=== PATIENT | female | born 1945 | race Caucasian/White ===

== ENCOUNTER 2018-06-09 17:12 | Emergency (ER) | payer MEDICARE, OTHER, SELFPAY ==
[2018-06-09 17:29] VITALS: BP 97/67; PULSE 94; RESP 17; O2SAT 98
--- NOTE | 2018-06-09 21:08 | ED_ITS ---
HPI - Nausea/Vomiting/Diarrhea General Chief complaint: Nausea/Vomiting/Diarrhea Stated complaint: CDIF, not getting better Time Seen by Provider: 06/09/18 20:53 Source: patient, family and old records reviewed Mode of arrival: wheelchair Limitations: no limitations History of Present Illness HPI Narrative: Patient is a 72-year-old female with known C diff presenting from her PCP office is for dehydration. She was treated with multiple antibiotics for knee infection, dental infection over the past few months. His she was diagnosed with C diff a few weeks ago placed on Flagyl for 10 days symptoms improved but immediately got worse when she stopped taking them. She was then started on vancomycin he has been on vancomycin for last 5 days she states that she her symptoms and stools have not improved at all. She continues to have a liquid water pre as the bowel like movements. She says she is not actually having any stool. She was supposedly hypotensive and tachycardic is in her PCP office. Today he has been states that she was extremely weak. She overall does not feel better. Vitals in the ED currently look much improved from what is reported at PCP office Blood pressure according to records 83/60 with heart rate of 106 MD complaint: diarrhea Description of Vomiting: watery Review of Systems Review of Systems GENERAL: Denies chills, fatigue, malaise, fever, sweats, travel HEENT: Denies sinus pain, ear pain, sore throat, difficulty swallowing, neck pain RESPIRATORY: Denies dyspnea, cough, wheezing, hemoptysis, sputum. CARDIOVASCULAR: Denies chest pain, palpitations, orthopnea, edema GASTROINTESTINAL: See HPI : Denies dysuria, frequency, incontinence, hematuria, urinary retention, flank pain. MUSCULOSKELETAL: Denies weakness, joint pain, or bony pain SKIN: No rash, no erythema, no pruritus NEUROLOGIC: Denies weakness, dizziness, headache, numbness, change in speech, confusion PSYCHIATRIC: No concerning psychosocial issues. 12 point review of systems is negative except for those stated above and HPI [facility] Medical History C. difficile colitis (Acute) Parkinsons (Acute) Social History marital status: Smoking Status: Never smoker Social History marital status: Smoking Status: Never smoker Exam Initial Vital Signs Initial Vital Signs: Vital Signs Pulse Rate 94 H 06/09/18 17:29 Respiratory Rate 17 06/09/18 17:29 Blood Pressure 97/67 06/09/18 17:29 Pulse Oximetry 98 06/09/18 17:29 GENERAL: Alert elderly female no acute distress HEENT: Head atraumatic,EOMI, pupils reactive CARDIOVASCULAR: Regular rate and rhythm without murmurs, rubs or gallops. RESPIRATORY: Breath sounds equal bilaterally, no wheezes rales or rhonchi. ABDOMEN: Soft, nontender. Normoactive bowel sounds all 4 quadrants. No guarding or rebound. EXTREMITIES: Normal range of motion, no clubbing or edema. Neurovascularly intact NEUROLOGICAL: Alert and oriented x4.Normal gait and speech. Cranial nerves II through XII grossly intact. SKIN: Warm, dry, no laceration, no petechiae, no rashes or lesions. Course Orders Ordered: ED Orders 06/09/18 21:15 Complete Blood Count AUTO DIFF Stat Comprehensive Metabolic Panel Stat Lipase Stat Procalcitonin Stat 06/09/18 21:55 Blood Culture Stat Lactate (Lactic Acid) Stat Discontinued Medications Sodium Chloride (Normal Saline 0.9%) 1,000 mls @ 1,000 mls/hr IV CONT BARNEY Last Infusion: 06/09/18 23:27 Dose: 0 mls/hr Admin: 06/09/18 21:24 Dose: 1,000 mls/hr Vital Signs - 8 hr 06/09/18 21:20 06/09/18 22:39 06/09/18 23:25 Temperature 98 F Pulse Rate 73 77 76 Respiratory Rate 16 18 20 Blood Pressure 111/66 Blood Pressure [Left Arm] 134/78 162/78 H Pulse Oximetry 97 98 100 MDM - Nausea/Vomiting/Diarrhea Lab Data Attestation: I reviewed the patient's lab results. Result diagrams: 06/09/18 21:15 06/09/18 21:15 Lab Results 06/09/18 06/09/18 06/09/18 Range/Units 21:15 21:15 21:15 WBC 7.5 (4.5-11.0) X10^3/uL RBC 4.65 (4.0-5.2) X10^6/uL Hgb 14.5 (12.0-16.0) g/dL Hct 42.8 (36-46) % MCV 92.2 (80-100) fL MCH 31.1 (26-34) PG MCHC 33.7 (30-36) % RDW 13.5 (11.6-14.8) % Plt Count 206 (150-400) X10^3/uL Neut % (Auto) 51.5 (50-75) % Lymph % (Auto) 37.1 (25-40) % [place] % (Auto) 8.2 (3-14) % Eos % (Auto) 2.2 (2-4) % Baso % (Auto) 1.0 (0-2) % Neut # (Auto) 3800 (0888-3981) /uL Lymph # (Auto) 2800 (1156-2014) /uL [place] # (Auto) 600 (0-900) /uL Eos # (Auto) 200 (0-450) /uL Baso # (Auto) 100 (0-100) /uL PT Cancelled INR Cancelled APTT Cancelled Sodium 138 (137-145) mmol/L Potassium 4.2 (3.4-5.1) mmol/L Chloride 100 (98-107) mmol/L Carbon Dioxide 29 (22-32) mmol/L BUN 25 H (7-17) mg/dL Creatinine 0.90 (0.52-1.04) mg/dL Estimated GFR > 60.0 (>60) mL/min BUN/Creatinine Ratio 27.8 H (6-22) Glucose 69 L (80-110) mg/dL Lactate (0.7-2.1) mmol/L Calcium 9.7 (8.4-10.2) mg/dL Total Bilirubin 0.8 (0.2-1.3) mg/dL AST 43 H (14-36) IU/L ALT 17 (9-52) IU/L Alkaline Phosphatase 118 (38-126) U/L Total Protein 8.4 H (6.3-8.2) g/dL Albumin 4.6 (3.5-5.0) g/dL Globulin 3.8 (1.7-4.1) g/dL Albumin/Globulin Ratio 1.2 (1.0-2.8) Lipase 65 (23-300) U/L Procalcitonin (<0.5) ng/mL 06/09/18 06/09/18 Range/Units 21:15 21:55 WBC (4.5-11.0) X10^3/uL RBC (4.0-5.2) X10^6/uL Hgb (12.0-16.0) g/dL Hct (36-46) % MCV (80-100) fL MCH (26-34) PG MCHC (30-36) % RDW (11.6-14.8) % Plt Count (150-400) X10^3/uL Neut % (Auto) (50-75) % Lymph % (Auto) (25-40) % [place] % (Auto) (3-14) % Eos % (Auto) (2-4) % Baso % (Auto) (0-2) % Neut # (Auto) (7388-4393) /uL Lymph # (Auto) (3106-7792) /uL [place] # (Auto) (0-900) /uL Eos # (Auto) (0-450) /uL Baso # (Auto) (0-100) /uL PT INR APTT Sodium (137-145) mmol/L Potassium (3.4-5.1) mmol/L Chloride (98-107) mmol/L Carbon Dioxide (22-32) mmol/L BUN (7-17) mg/dL Creatinine (0.52-1.04) mg/dL Estimated GFR (>60) mL/min BUN/Creatinine Ratio (6-22) Glucose (80-110) mg/dL Lactate 1.6 (0.7-2.1) mmol/L Calcium (8.4-10.2) mg/dL Total Bilirubin (0.2-1.3) mg/dL AST (14-36) IU/L ALT (9-52) IU/L Alkaline Phosphatase (38-126) U/L Total Protein (6.3-8.2) g/dL Albumin (3.5-5.0) g/dL Globulin (1.7-4.1) g/dL Albumin/Globulin Ratio (1.0-2.8) Lipase (23-300) U/L Procalcitonin < 0.05 (<0.5) ng/mL MDM Narrative Medical decision making narrative: Patient's blood pressure was initially slightly low however improved his with IV fluids. She is tolerating oral fluids without difficulty. She was ambulating to the restroom without any problem. She likely needs longer treatment on antibiotics for her C diff. At this time she does not appear septic or significantly dehydrated and can be managed as an outpatient. Patient and agreed with this plan. Discharge Plan Departure Patient Disposition: Home Clinical Impression: Clostridium difficile infection Discharge Date/Time: 06/09/18 23:27 Interventions: ED Discharge Assessment Last Done: 06/09/18 23:25 Instructions: Antibiotic-associated Colitis -- C difficile Activity Restrictions/Additional Instructions: *You have been diagnosed with Clostridium difficile *What to do: Increase fluid intake something like Gatorade, with sugar and electrolytes. *Continue to take medications as directed Continue vancomycin in till gone as prescribed *Follow up with your primary care provider in 2-3 days *Return to ER if you should have weakness, lightheadedness, dizziness is, decreased oral intake or any new, worsening or concerning symptoms Referrals: Daly Sears MD [Primary Care Provider] -
[2018-06-09 21:20] VITALS: BP 134/78; PULSE 73; RESP 16; O2SAT 97
[2018-06-09 21:23] LABS: Add Manual Diff / Slide Review NO; Basophils Absolute Auto 100 /uL (0-100); Eosinophils Absolute Auto 200 /uL (0-450); Eosinophils Percent Auto 2.2 % (2-4); Hematocrit 42.8 % (36-46); Hemoglobin 14.5 g/dL (12.0-16.0); Lymphocytes Absolute Auto 2800 /uL (1100-4500); Lymphocytes Percent Auto 37.1 % (25-40); Mean Corpuscular HGB Conc 33.7 % (30-36); Mean Corpuscular Hemoglobin 31.1 PG (26-34); Mean Corpuscular Volume 92.2 fL (80-100); Monocytes Absolute Auto 600 /uL (0-900); Monocytes Percent Auto 8.2 % (3-14); Neutrophils Absolute Auto 3800 /uL (1500-7000); Neutrophils Percent Auto 51.5 % (50-75); Platelet Count 206 X10^3/uL (150-400); Red Blood Cell Count 4.65 X10^6/uL (4.0-5.2); Red Cell Distribution Width 13.5 % (11.6-14.8); White Blood Cell Count 7.5 X10^3/uL (4.5-11.0)
[2018-06-09] MEDS: SODIUM CHLORIDE 0.9% 1,000 ML 1000 ML IV (21:24)
[2018-06-09 21:33] LABS: Alanine Aminotransferase 17 IU/L (9-52); Albumin 4.6 g/dL (3.5-5.0); Albumin Globulin Ratio 1.2 (1.0-2.8); Alkaline Phosphatase 118 U/L (38-126); Aspartate Aminotransferase 43 IU/L (14-36); BUN Creatinine Ratio 27.8 (6-22); Bilirubin Total 0.8 mg/dL (0.2-1.3); Blood Urea Nitrogen 25 mg/dL (7-17); Calcium 9.7 mg/dL (8.4-10.2); Carbon Dioxide 29 mmol/L (22-32); Chloride 100 mmol/L (98-107); Estimated Glomerular Filt Rate > 60.0 mL/min (>60); Globulin 3.8 g/dL (1.7-4.1); Glucose 69 mg/dL (80-110); HEMOLYSIS 46 (0-50); Lipase 65 U/L (23-300); Potassium 4.2 mmol/L (3.4-5.1); Sodium 138 mmol/L (137-145); Total Protein 8.4 g/dL (6.3-8.2)
[2018-06-09 22:02] LABS: Procalcitonin < 0.05 ng/mL (<0.5)
[2018-06-09 22:21] LABS: Lactate (Lactic Acid) 1.6 mmol/L (0.7-2.1)
[2018-06-09 22:39] VITALS: BP 162/78; PULSE 77; RESP 18; O2SAT 98
[2018-06-09 23:25] VITALS: BP 111/66; PULSE 76; RESP 20; TEMP 36.6; O2SAT 100
== END 2018-06-09 23:27 | disposition home or self-care (01) ==
PROVIDERS: Emergency Provider Emergency Medicine; PCP Internal Medicine
DX: A49.8 Other bacterial infections of unspecified site (principal)
CPT/HCPCS: 36415; 36591; 80053; 83605; 83690; 84145; 85025; 87040; 96360; 96361; 99283; 99284

== ENCOUNTER 2018-06-22 17:09 | Inpatient (IN) | payer MEDICARE, OTHER, SELFPAY ==
[2018-06-22 17:37] VITALS: BP 149/79; PULSE 88; RESP 17; TEMP 37.7; O2SAT 98; BMI 36.9
[2018-06-22 19:00] VITALS: BP 129/89; PULSE 92; RESP 16; TEMP 38; O2SAT 99
[2018-06-22] MEDS: ACETAMINOPHEN 325 MG TABLET 650 MG PO (19:18)
[2018-06-22 19:23] LABS: Add Manual Diff / Slide Review NO; Basophils Absolute Auto 0 /uL (0-100); Basophils Percent Auto 0.4 % (0-2); Eosinophils Absolute Auto 0 /uL (0-450); Eosinophils Percent Auto 0.3 % (2-4); Hematocrit 38.9 % (36-46); Hemoglobin 13.2 g/dL (12.0-16.0); Lymphocytes Absolute Auto 700 /uL (1100-4500); Lymphocytes Percent Auto 8.6 % (25-40); Mean Corpuscular HGB Conc 33.9 % (30-36); Mean Corpuscular Hemoglobin 31.5 PG (26-34); Mean Corpuscular Volume 92.7 fL (80-100); Monocytes Absolute Auto 600 /uL (0-900); Monocytes Percent Auto 6.9 % (3-14); Neutrophils Absolute Auto 7200 /uL (1500-7000); Neutrophils Percent Auto 83.8 % (50-75); Platelet Count 181 X10^3/uL (150-400); Red Cell Distribution Width 13.6 % (11.6-14.8); White Blood Cell Count 8.6 X10^3/uL (4.5-11.0)
--- NOTE | 2018-06-22 19:23 | PC.NURSE ---
reported pt temp, rec'd orders, noted.
[2018-06-22 19:33] LABS: Alanine Aminotransferase 19 IU/L (9-52); Albumin 3.8 g/dL (3.5-5.0); Albumin Globulin Ratio 1.2 (1.0-2.8); Alkaline Phosphatase 114 U/L (38-126); Aspartate Aminotransferase 39 IU/L (14-36); BUN Creatinine Ratio 18.9 (6-22); Bilirubin Total 0.8 mg/dL (0.2-1.3); Blood Urea Nitrogen 17 mg/dL (7-17); Calcium 9.1 mg/dL (8.4-10.2); Carbon Dioxide 29 mmol/L (22-32); Chloride 98 mmol/L (98-107); Estimated Glomerular Filt Rate > 60.0 mL/min (>60); Globulin 3.2 g/dL (1.7-4.1); Glucose 86 mg/dL (80-110); HEMOLYSIS < 15 (0-50); Potassium 3.9 mmol/L (3.4-5.1); Sodium 136 mmol/L (137-145)
[2018-06-22] MEDS: SODIUM CHLORIDE 0.9% 1,000 ML 1000 ML IV (19:41)
[2018-06-22 19:43] LABS: Influenza A and B by PCR Rapid Negative (Negative)
[2018-06-22 21:21] VITALS: BP 109/74; PULSE 88; RESP 18; TEMP 37.3; O2SAT 94
[2018-06-22 21:26] VITALS: TEMP 37.3
--- NOTE | 2018-06-22 21:27 | PC.NURSE ---
pt took own 2000 medications.
[2018-06-22 21:56] VITALS: BMI 36.9
[2018-06-22 22:25] VITALS: BP 137/80; PULSE 94; RESP 18; TEMP 36.8; O2SAT 96
[2018-06-22 23:51] VITALS: BP 127/63; PULSE 82; RESP 16; TEMP 36.8; O2SAT 93
[2018-06-23] VITALS (10 sets, daily range): BP systolic 116–145; BP diastolic 56–91; PULSE 71–90; RESP 16–20; TEMP 36.2–37.1; O2SAT 92–97; BMI 37.4
--- NOTE | 2018-06-23 | DI.RAD.S_ITS ---
PROCEDURE: XR ABDOMEN MIN 2V INDICATIONS: r/o ileus TECHNIQUE: 2 views of the abdomen were acquired. COMPARISON: None. FINDINGS: Surgical changes and devices: There is suggestion of lap band in left upper quadrant abdomen. Post-fusion changes in lower lumbar spine are also noted. Bowel: No pneumoperitoneum. The bowel gas pattern is normal. Fecal stasis in the colon is seen. Soft tissues: No masses; visualized solid organ contours appear normal in size. No suspicious abdominal calcifications. Bones: No suspicious bony abnormalities. IMPRESSION: Constipation. No gross free air. Dictated by: Wang Mendoza M.D. on 06/23/2018 at 18:19 Approved by: Wang Mendoza M.D. on 06/23/2018 at 18:20
--- NOTE | 2018-06-23 00:35 | ED_ITS ---
HPI - Nausea/Vomiting/Diarrhea General Chief complaint: Nausea/Vomiting/Diarrhea Stated complaint: C-diff Time Seen by Provider: 06/22/18 18:25 Source: patient and family Mode of arrival: ambulatory Limitations: no limitations History of Present Illness HPI Narrative: 72-year-old female, nonsmoker with history recent C diff and Parkinson's presents with her at the request of her primary care provider. The patient has had multiple syncopal episodes over the past few days and continues to be dizzy, weak and lightheaded. She has a very poor appetite and can drink some water but has had no solid foods. She got C diff in the aftermath of multiple courses of antibiotics after a surgical site infection of an orthopedic knee surgery and then again in March when she was treated with clindamycin for a dental infection. She has now had course of Flagyl and recently completed oral vancomycin. She was seen by her PCP a few weeks ago and had low BP in the office and was sent here for evaluation. She felt better after fluids and went home. She presented to his office today and had BP in the 70s, was given an IV and sent here for evaluation. complaint: diarrhea Onset (ago): week(s) Description of Diarrhea: watery Radiation: diffuse Severity: mild Quality: cramping Pain Consistency: intermittent Relieving factors: none Exacerbating factors: none Related Data Home Medications Medication Instructions Recorded Confirmed alprazolam [Xanax] 1 mg PO BEDTIME 06/22/18 06/22/18 amantadine HCl 100 mg PO BID 06/22/18 06/22/18 carbidopa-levodopa 1 tab PO 0000 06/22/18 06/22/18 carbidopa-levodopa 1 tab PO QID 06/22/18 06/22/18 docusate calcium [Stool Softener] 240 mg PO BID 06/22/18 06/22/18 duloxetine 30 mg PO Q8H 06/22/18 06/22/18 gabapentin 200 mg PO Q4H 06/22/18 06/22/18 levothyroxine [Synthroid] 100 mcg PO DAILY 06/22/18 06/22/18 Allergies Allergy/AdvReac Type Severity Reaction Status Date / Time codeine Allergy Verified 06/22/18 17:54 iodine Allergy Verified 06/22/18 17:54 Penicillins Allergy Verified 06/22/18 17:54 Sulfa (Sulfonamide Allergy Verified 06/22/18 17:54 Antibiotics) Review of Systems Constitutional Denies chills, Denies fever(s), Denies lethargy, Reports malaise, Reports poor appetite and Reports weakness Eyes Denies change in vision, Denies eye discharge, Denies irritation and Denies loss of vision ENT Ears, Nose, Mouth, and Throat: Denies change in voice, Denies neck pain and Denies sore throat Cardiovascular Denies chest pain, Denies irregular heart rhythm, Denies lightheadedness, Denies palpitations, Denies dyspnea, Denies dyspnea on exertion and Denies orthopnea Respiratory Denies cough, Denies dyspnea, Denies dyspnea on exertion and Denies wheezing Gastrointestinal Gastrointestinal: Denies abdominal pain, Denies change in bowel habits, Reports diarrhea, Denies nausea and Denies vomiting Genitourinary Denies hematuria, Denies flank pain, Denies urinary incontinence and Denies urinary urgency Musculoskeletal Denies neck pain Integumentary/Breasts Denies pruritus, Denies erythema, Denies rash and Denies wounds Neurologic Denies confusion, Denies loss of vision and Reports weakness Psychiatric Denies anxiety, Denies confusion, Denies depression, Denies homicidal ideation and Denies suicidal ideation Endocrine Denies palpitations Hematologic/Lymphatic Denies easy bruising Allergic/Immunologic Denies wheezing [facility] Medical History C. difficile colitis (Acute) Parkinsons (Acute) Social History marital status: household members: spouse Smoking Status: Never smoker Social History marital status: household members: spouse Smoking Status: Never smoker Exam Narrative Exam Narrative: GENERAL: 72-year-old female in obvious distress, dry mucous membranes, weak and frail in appearance HEAD: Atraumatic. Normocephalic. No temporal or scalp tenderness. EYES: Pupils equal round and reactive. Extraocular motions intact. No scleral icterus. No injection or drainage. ENT: Dry mucous membranes Nose without bleeding, purulent drainage or septal hematoma. Throat without erythema, tonsillar hypertrophy or exudate. Uvula midline. Airway patent. NECK: Trachea midline. No JVD or lymphadenopathy. Supple, nontender, no meningeal signs. CARDIOVASCULAR: Regular rate and rhythm without murmurs, gallops, or rubs. RESPIRATORY: Clear to auscultation. Breath sounds equal bilaterally. No wheezes, rales, or rhonchi. GASTROINTESTINAL: Abdomen soft, non-tender, nondistended. No hepato-spl enomegaly, or palpable masses. No guarding. EXTREMITIES: No clubbing, cyanosis, or edema. No joint tenderness, effusion, or edema noted. BACK: Nontender without deformity or crepitance. No flank tenderness. NEURO: AOx3. SKIN: Poor skin turgor No rash or erythema. Initial Vital Signs Initial Vital Signs: Vital Signs Temperature 99.9 F H 06/22/18 17:37 Pulse Rate 88 06/22/18 17:37 Respiratory Rate 17 06/22/18 17:37 Blood Pressure 149/79 H 06/22/18 17:37 Pulse Oximetry 98 06/22/18 17:37 Course Orders Ordered: ED Orders 06/22/18 19:04 Complete Blood Count AUTO DIFF Stat Comprehensive Metabolic Panel Stat 06/22/18 19:09 Blood Culture Stat 06/22/18 19:15 FLU A and B [Influenza A and B by PCR Rapid] Stat 06/23/18 Basic Metabolic Panel Routine Complete Blood Count AUTO DIFF Routine Magnesium Routine 06/23/18 00:08 Consult to Dietitian, Adult Routine 06/23/18 00:09 Consult to Discharge Planning Routine Acetaminophen (Tylenol) 650 mg PO Q6HR PRN PRN Reason: As Needed for Fever/Mild Pain Amantadine HCl (Symmetrel) 100 mg PO BID BARNEY Carbidopa/Levodopa (Sinemet Er 50-200 Tab) 1 each PO 0000 BARNEY Duloxetine HCl (Cymbalta) 30 mg PO Q8H BARNEY Enoxaparin Sodium (Lovenox) 40 mg SUBCUT DAILY BARNEY Gabapentin (Neurontin) 200 mg PO Q4H BARNEY Sodium Chloride (Normal Saline 0.9%) 1,000 mls @ 1,000 mls/hr IV BOLUS PRN PRN Reason: Fluid replacement Last Infusion: 06/22/18 21:04 Dose: 0 mls/hr Admin: 06/22/18 19:41 Dose: 1,000 mls/hr Sodium Chloride (Normal Saline 0.9%) 1,000 mls @ 100 mls/hr IV CONT BARNEY Sodium Chloride (Normal Saline 0.9%) 1,000 mls @ 125 mls/hr IV CONT BARNEY Levothyroxine Sodium (Synthroid) 100 mcg PO QACBREAK BARNEY Non-Formulary Medication (Carbidopa-Levodopa) 1 tab PO QID BARNEY Ondansetron HCl (Zofran) 4 mg IV Q8HR PRN PRN Reason: Nausea And Vomiting Vancomycin HCl (Vancomycin) 125 mg PO QID BARNEY Discontinued Medications Acetaminophen (Tylenol) 650 mg PO NOW ONE Stop: 06/22/18 19:14 Last Admin: 06/22/18 19:18 Dose: 650 mg Ondansetron HCl (Zofran) 4 mg IV NOW ONE Stop: 06/22/18 18:27 Last Admin: 06/22/18 19:41 Dose: Not Given Vital Signs - 8 hr 06/22/18 17:37 06/22/18 19:00 06/22/18 21:21 Temperature 99.9 F H 100.4 F H 99.1 F Pulse Rate 88 92 H 88 Respiratory Rate 17 16 18 Blood Pressure 149/79 H Blood Pressure [Left Arm] 129/89 109/74 Pulse Oximetry 98 99 94 06/22/18 21:26 06/22/18 22:25 06/22/18 23:51 Temperature 99.1 F 98.3 F 98.3 F Pulse Rate 94 H 82 Respiratory Rate 18 16 Blood Pressure 137/80 127/63 Blood Pressure [Left Arm] Pulse Oximetry 96 93 06/23/18 00:02 Temperature 98.3 F Pulse Rate 82 Respiratory Rate 16 Blood Pressure 127/63 Blood Pressure [Left Arm] Pulse Oximetry 93 MDM - Nausea/Vomiting/Diarrhea Medical Records Attestation: I reviewed the patient's medical records. Lab Data Result diagrams: 06/22/18 19:04 06/22/18 19:04 Lab Results 06/22/18 06/22/18 06/22/18 Range/Units 19:04 19:04 19:15 WBC 8.6 (4.5-11.0) X10^3/uL RBC 4.20 (4.0-5.2) X10^6/uL Hgb 13.2 (12.0-16.0) g/dL Hct 38.9 (36-46) % MCV 92.7 (80-100) fL MCH 31.5 (26-34) PG MCHC 33.9 (30-36) % RDW 13.6 (11.6-14.8) % Plt Count 181 (150-400) X10^3/uL Neut % (Auto) 83.8 H (50-75) % Lymph % (Auto) 8.6 L (25-40) % [place] % (Auto) 6.9 (3-14) % Eos % (Auto) 0.3 L (2-4) % Baso % (Auto) 0.4 (0-2) % Neut # (Auto) 7200 H (4218-2946) /uL Lymph # (Auto) 700 L (2008-2620) /uL [place] # (Auto) 600 (0-900) /uL Eos # (Auto) 0 (0-450) /uL Baso # (Auto) 0 (0-100) /uL Sodium 136 L (137-145) mmol/L Potassium 3.9 (3.4-5.1) mmol/L Chloride 98 (98-107) mmol/L Carbon Dioxide 29 (22-32) mmol/L BUN 17 (7-17) mg/dL Creatinine 0.90 (0.52-1.04) mg/dL Estimated GFR > 60.0 (>60) mL/min BUN/Creatinine Ratio 18.9 (6-22) Glucose 86 (80-110) mg/dL Calcium 9.1 (8.4-10.2) mg/dL Total Bilirubin 0.8 (0.2-1.3) mg/dL AST 39 H (14-36) IU/L ALT 19 (9-52) IU/L Alkaline Phosphatase 114 (38-126) U/L Total Protein 7.0 (6.3-8.2) g/dL Albumin 3.8 (3.5-5.0) g/dL Globulin 3.2 (1.7-4.1) g/dL Albumin/Globulin Ratio 1.2 (1.0-2.8) Influenza A & B (PCR) Negative (Negative) Urine Dip Bedside Urine Glucose Negative Bedside Urine Bilirubin - Negative Bedside Urine Ketone ++ 40 Urine Specific [place] 1.030 Bedside Urine Occult Blood ++ Bedside Urine pH 6.0 Bedside Urine Protein - Negative Bedside Urine Urobilinogen - Negative Bedside Urine Nitrite - Negative Bedside Urine Leukocytes - Negative Esterase MDM Narrative Medical decision making narrative: 72-year-old female with history of Par kinson's has had multiple episodes of syncope and stands a strong risk of significant injury when coupling dehydration, weakness and her baseline gait disturbance. She has known C diff colitis and has become profoundly dehydrated and despite 3 L of normal saline has not produced urine, continues to have dry mucous membranes, poor skin turgor. Though her labs are not terribly exciting she will require hospitalization for stabilization and further evaluation of her condition Discharge Plan Departure Patient Disposition: Admitted as Observation Clinical Impression: Clostridium difficile infection, Dehydration Discharge Date/Time: 06/22/18 22:06 Interventions: ED Discharge Assessment Last Done: 06/22/18 22:06 Admit Date/Time: 06/22/18 21:23 Admit Provider: Carlos Sinha
[2018-06-23] MEDS: VANCOMYCIN 125 MG CAPSULE PO ×4 (01:25→16:27)
[2018-06-23] MEDS: SODIUM CHLORIDE 0.9% 1,000 ML 1000 ML IV (01:25)
--- NOTE | 2018-06-23 01:38 | PC.NURSE ---
Addendum entered by Yi Andres R.N. 06/23/18 06:12: Pt reports dizziness when up to sink after using bathroom. See [facility]ER note for details. Once back in bed. Pt reports s/s have resolved. Original Note: Pt arrived to room 224 via Stretcher prior this check writer's shift. No IV access. IV access obtained. Per Hospitalist okay for pt to take her own HS home meds as they are not stocked in night pharmacy. IVF bolus infusing per orders. Oriented to room and call system. Pt verbalized she will call for needs.
--- NOTE | 2018-06-23 02:21 | PM.HP.1 ---
History of Present Illness Date Patient Seen: 06/22/18 Time Patient Seen: 23:00 Chief complaint: C-diff Narrative: This is a 72-year-old female patient with a history of Parkinson's, hypothyroidism, vertigo presents to the ER today with complaints syncopal episodes low blood pressure dizziness. The patient had a previous episode C difficile colitis after exposure to multiple antibiotics that began with total knee surgery in December followed by another surgery January for infected knee and then on March 31 the patient was started on clindamycin for dental infection by the oral surgeon developing C difficile the next day. This is treated with Flagyl and oral vancomycin for 2 weeks. She has had recurrent symptoms with watery mucoid stools and loss of appetite and 2 syncopal episodes in the last 2 days. Patient describes being dizzy and lightheaded upon standing. She describes having abdominal pain that is dull at times sharp but others and rates his worst than menstrual cramps. The patient initially treated in walk-in clinic with 2 L of lactated Ringer's. She received another L of fluid in the emergency room. The patient disorder reports progressive weakness to the extent that over the last 3 weeks she has not been able to participate with physical therapy for her knee rehabilitation. The patient does state that she can walk around the house or walk for approximately 10 minutes without having to rest. She reports no ongoing complaints of fevers or chills, headaches or visual changes. She has a nasal congestion or sore throat. She reports no chest pain but does have dyspnea on exertion without cough. The patient does have continuing left knee pain with a well-healed surgical scar without evidence of infection or inflammation. In the ER the patient has a normal white count at 8.6 with increased neutrophils is negative for flu and chemistries and renal function are within normal range. Patient History Medical History (Updated 06/23/18 @ 03:28 by BERT Marc) History of dental abscess (Acute) Hypothyroidism (Acute) Infection of total left knee replacement (Acute) C. difficile colitis (Acute) Parkinsons (Acute) Surgical History History of total left knee replacement (Acute) Social History marital status: household members: spouse Smoking Status: Never smoker Family & Social History Social History: household members spouse Prior Living Arrangements House Safety & Behavioral: Feels Safe in Current Yes Environment Been Physically Hurt or No Threatened By a Person Suicidal Ideation Description None Suicide Plan Description No Plan Tobacco & Substance use: Smoking Status Never smoker alcohol intake frequency other Substance Use Type does not use Comment: The patient lives in a single family home with her to whom she has been for 51 years and her son for whom she is safety leader who has a history of traumatic brain injury. The patient's father is at 69 following a stroke in her mother at 72 also with a stroke. Her brother suddenly related to ruptured aortic aneurysm. She has a sister who has rectal colon cancer and daughter who has lupus. Smoking: The patient has never smoked Alcohol: The patient does not drink alcohol Substance use: Patient denies use of recreational pharmaceuticals, herbal or cannabis products. Advanced directives: Patient wishes to be a DO NOT RESUSCITATE related to history of advanced Parkinson's disease. she designates her daughter Valerie Tamez to be her surrogate decision maker. Meds Home Medications Medication Instructions Recorded Confirmed Type alprazolam [Xanax] 1 mg PO BEDTIME 06/22/18 06/22/18 History amantadine HCl 100 mg PO BID 06/22/18 06/22/18 History carbidopa-levodopa 1 tab PO 0000 06/22/18 06/22/18 History carbidopa-levodopa 1 tab PO QID 06/22/18 06/22/18 History docusate calcium [Stool Softener] 240 mg PO BID 06/22/18 06/22/18 History duloxetine 30 mg PO Q8H 06/22/18 06/22/18 History gabapentin 200 mg PO Q4H 06/22/18 06/22/18 History levothyroxine [Synthroid] 100 mcg PO DAILY 06/22/18 06/22/18 History Allergies Allergy/AdvReac Type Severity Reaction Status Date / Time codeine Allergy Verified 06/22/18 17:54 iodine Allergy Verified 06/22/18 17:54 Penicillins Allergy Verified 06/22/18 17:54 Sulfa (Sulfonamide Allergy Verified 06/22/18 17:54 Antibiotics) Review of Systems Review of Systems All systems reviewed & are unremarkable except as noted in HPI and below Exam Vital Signs (past 8 hours): - 06/22/18 19:00 06/22/18 21:21 06/22/18 21:26 Temperature 100.4 F H 99.1 F 99.1 F Pulse Rate 92 H 88 Respiratory Rate 16 18 Blood Pressure Blood Pressure [Left Arm] 129/89 109/74 Pulse Oximetry 99 94 06/22/18 22:25 06/22/18 23:51 06/23/18 00:02 Temperature 98.3 F 98.3 F 98.3 F Pulse Rate 94 H 82 82 Respiratory Rate 18 16 16 Blood Pressure 137/80 127/63 127/63 Blood Pressure [Left Arm] Pulse Oximetry 96 93 93 Oxygen Delivery Method Room Air Narrative Exam Narrative: GENERAL APPEARANCE: well developed, obese female with a BMI of 36.9 who is ill-appearing. HEAD: Normocephalic, masked facies not appreciated, no scalp lesions. EYES: pupils equal, round, reactive to light and accommodation, sclera non-icteric, extraocular movement intact . EARS: normal external structures, no ear pain NOSE: sinuses non tender to percussion, no rhinorrhea ORAL CAVITY: mucosa moist without lesions or exudate, palate normal, tongue in midline. THROAT: normal, no erythema, no exudate, pharynx normal, uvula midline, no evidence of dysphagia NECK/THYROID: neck supple, no jugular venous distention, no carotid bruit, no thyromegaly, trachea midline. LYMPH NODES: no cervical or supraclavicular lymphadenopathy. SKIN: warm and dry, no suspicious lesions, no rashes, good turgor. HEART: regular rate and rhythm, S1-S2, 1/6 systolic murmur, without rubs or gallops, brisk capillary refill, trace pedal edema LUNGS: clear to auscultation bilaterally, no coarseness crackles or wheezing, no cough present CHEST: Symmetrical movement, no accessory muscle use ABDOMEN: Soft, round, no distention, generalized abdominal tenderness on palpation, no guarding or peritoneal signs, no organomegaly, no flank or suprapubic tenderness, bowel tones hyperactive BACK: Normal curvature, pain on percussion over right scapula without contusions or abrasions or muscle spasms EXTREMITIES: Well-healed surgical scar over left anterior knee, tender to palpation, pain on patellar manipulation, moves all extremities, strength is 5/5 and symmetrical, well perfused. NEUROLOGIC: AAO x4, decreased use of left arm, mild hand tremor, cranial nerves II-XII grossly intact , motor strength normal upper and lower extremities, sensory exam intact to light touch, hearing grossly normal to speech. PSYCH: alert, cognitive function intact, good eye contact, stable mood with congruent affect Objective Labs Result Diagrams: 06/22/18 19:04 06/22/18 19:04 Labs: Laboratory Results - last 24 hr 06/22/18 06/22/18 06/22/18 19:04 19:04 19:15 WBC 8.6 RBC 4.20 Hgb 13.2 Hct 38.9 MCV 92.7 MCH 31.5 MCHC 33.9 RDW 13.6 Plt Count 181 Neut % (Auto) 83.8 H Lymph % (Auto) 8.6 L [place] % (Auto) 6.9 Eos % (Auto) 0.3 L Baso % (Auto) 0.4 Neut # (Auto) 7200 H Lymph # (Auto) 700 L [place] # (Auto) 600 Eos # (Auto) 0 Baso # (Auto) 0 Sodium 136 L Potassium 3.9 Chloride 98 Carbon Dioxide 29 BUN 17 Creatinine 0.90 Estimated GFR > 60.0 BUN/Creatinine Ratio 18.9 Glucose 86 Calcium 9.1 Total Bilirubin 0.8 AST 39 H ALT 19 Alkaline Phosphatase 114 Total Protein 7.0 Albumin 3.8 Globulin 3.2 Albumin/Globulin Ratio 1.2 Influenza A & B (PCR) Negative Assessment & Plan Assessment & Plan narrative: The patient is admitted to the hospital due to severe dehydration secondary to colitis number. 1. Clostridium difficile infection, acute on chronic -onset of initial episode of C difficile was March 31, 2017 following exposure to multiple antibiotics related to knee surgery and subsequently clindamycin for dental infection -patient is symptomatic with mucoid watery stools and completed course of metronidazole and oral vancomycin for 2 weeks -patient has normal white count however has increased neutrophils, has negative flu screen, will obtain a GI PCR panel to evaluate for superimposed viral process -the patient is restarted on vancomycin 125 mg every 6 hours. 2. Severe dehydration, acute -patient seen in urgent care setting where the patient was rehydrated with 2 L of lactated Ringer's and subsequently sent to the emergency department for further treatment -patient has received another liter of IV fluids in the ER. Patient continues to report orthostasis -will continue normal saline at 125 cc/hour. 3. Parkinsonism, chronic -the patient is currently taking amantadine 100 mg twice daily and carbidopa levodopa ER 25/100 4 times daily and 50/100 at midnight -patient's symptoms appear well controlled with hand tremors but face is animated -will have physical therapy evaluate and treat for motor instability 4. Status post infected left total knee replacement, chronic -The patient has ongoing left knee pain but is not taking oral pain medication. -will have PT evaluate gait disturbance related to both muscular instability from Parkinson's versus mechanical disability related to her total knee. 5. Hypothyroidism, chronic, presume stable -will continue patient's levothyroxine 100 mcg daily The patient is admitted to the hospital related to the severity of symptoms and potential for complications. She is admitted as an inpatient with expected length of stay greater than 2 midnights.
[2018-06-23] MEDS: SODIUM CHLORIDE 0.9% 1,000 ML 125 ML IV ×3 (02:33→18:38)
--- NOTE | 2018-06-23 05:44 | PC.NURSE ---
Took patient's vitals before getting up to go to the bathroom. They were 97.7; 76 pulse; 18 resp/minute; 97% on RA; and 116/68. I got patient to the bathroom and when she was washing her hands she started to complain of feeling dizzy and light headed. Called in Yi Andres RN. Got patient safely back to bed. Took patient's blood pressure: 141/91 with a pulse of 86. Patient back in bed, yellow gown on, yellow socks. Bed alarm on. RN aware.
[2018-06-23 06:49] LABS: Campylobacter Not Detected (Not Detect)
[2018-06-23 06:50] LABS: Adenovirus F 40/41 Not Detected (Not Detect); Clostridium difficile toxin AB Detected (Not Detect); Cryptosporidium Not Detected (Not Detect); Cyclospora cayetanensis Not Detected (Not Detect); Entamoeba histolytica Not Detected (Not Detect); Enteroaggregative E.coli Not Detected (Not Detect); Enteropathogenic E.coli Not Detected (Not Detect); Enterotoxigenic E.coli It/st Not Detected (Not Detect); Giardia lamblia Not Detected (Not Detect); Plesiomonsa shigelloides Not Detected (Not Detect); Salmonella Not Detected (Not Detect); Shiga-like toxin-prod E.coli Not Detected (Not Detect); Shigella/Enteroinvasive E.coli Not Detected (Not Detect); Vibrio Not Detected (Not Detect); Vibrio cholerae Not Detected (Not Detect); Yersinia enterocolitica Not Detected (Not Detect)
[2018-06-23 06:51] LABS: Astrovirus Not Detected (Not Detect); Norovirus GI/GII Not Detected (Not Detect); Rotavirus A Not Detected (Not Detect); Sapovirus Not Detected (Not Detect)
[2018-06-23 06:53] LABS: Add Manual Diff / Slide Review NO; Basophils Absolute Auto 0 /uL (0-100); Basophils Percent Auto 0.6 % (0-2); Eosinophils Absolute Auto 200 /uL (0-450); Eosinophils Percent Auto 2.8 % (2-4); Hematocrit 34.9 % (36-46); Lymphocytes Absolute Auto 1000 /uL (1100-4500); Lymphocytes Percent Auto 17.6 % (25-40); Mean Corpuscular HGB Conc 34.3 % (30-36); Mean Corpuscular Hemoglobin 31.9 PG (26-34); Monocytes Absolute Auto 600 /uL (0-900); Monocytes Percent Auto 10.1 % (3-14); Neutrophils Absolute Auto 4000 /uL (1500-7000); Neutrophils Percent Auto 68.9 % (50-75); Platelet Count 166 X10^3/uL (150-400); Red Blood Cell Count 3.76 X10^6/uL (4.0-5.2); White Blood Cell Count 5.7 X10^3/uL (4.5-11.0)
[2018-06-23 07:11] LABS: BUN Creatinine Ratio 18.6 (6-22); Blood Urea Nitrogen 13 mg/dL (7-17); Calcium 8.7 mg/dL (8.4-10.2); Carbon Dioxide 29 mmol/L (22-32); Chloride 104 mmol/L (98-107); Estimated Glomerular Filt Rate > 60.0 mL/min (>60); Glucose 90 mg/dL (80-110); HEMOLYSIS < 15 (0-50); Potassium 3.3 mmol/L (3.4-5.1); Sodium 139 mmol/L (137-145)
[2018-06-23 07:33] LABS: Procalcitonin 0.05 ng/mL (<0.5)
[2018-06-23] MEDS: ENOXAPARIN 40 MG/0.4 ML SYRINGE SUBCUT (07:59)
[2018-06-23] MEDS: ACETAMINOPHEN 325 MG TABLET 650 MG PO ×2 (07:59→23:39)
[2018-06-23] MEDS: GABAPENTIN 100 MG CAPSULE 200 MG PO ×5 (08:00→23:52)
[2018-06-23] MEDS: DULOXETINE 30 MG CAPSULE PO (08:00)
[2018-06-23] MEDS: AMANTADINE 100 MG CAPSULE PO ×2 (08:01→16:33)
[2018-06-23] MEDS: CARBIDOPA LEVODOPA 1 EACH PO ×3 (09:30→20:37)
--- NOTE | 2018-06-23 11:05 | PT.IIE ---
Surgical History (Last Reviewed 06/23/18 @ 08:32 by Eva Ramirez, PT) History of total left knee replacement (Acute) Medical History (Last Reviewed 06/23/18 @ 08:32 by Eva Ramirez, PT) History of dental abscess (Acute) Hypothyroidism (Acute) Infection of total left knee replacement (Acute) C. difficile colitis (Acute) Parkinsons (Acute) Physical Therapy Inpatient Evaluation/Re-Eval M1 PT/OT-IP Prior Functional Status Start: 06/23/18 10:07 Freq: NEEDED Status: Active Protocol: Document 06/23/18 11:05 DLM (Rec: 06/23/18 12:24 DL [id number]) Medical Review Prior Functional Status Medical History Reviewed Yes Diet/Fluid Consistency Regular Communication WNL Mobility and Gait Independent gait with 4WW in her home, Spouse helps her up/ down the steps at the entrance , she gets help with rolling over in bed Activities of Daily Living and IADL's Spouse assists her with toileting and showers. Her Spouse does the cooking, cleaning and laundry. She has a actuarial technician who does the bigger cleaning. Prior Functional Level (Other details) Parkinsons symptoms Her out-pt Physical Therapy was stopped due to the infection in left knee then onset of C-diff. Social History Household Members spouse Living Arrangements House Number of Floors (Floors) One Floor Number of Stairs To Enter/Railing? 2, rails Home Environment High Toilet Walk in Shower Home Equipment Four Wheel Walker Raised Toilet Seat w/Armrests Shower Seat with Backrest Grab Bars Near Toilet Grab Bars In Shower Employment Status Retired Additional Social History Comment she fell twice before this admission due to weakness and dizziness (off toilet and off edge of bed) M2 PT-IP Current Condition Start: 06/23/18 10:07 Freq: NEEDED Status: Active Protocol: Document 06/23/18 11:05 DLM (Rec: 06/23/18 12:24 DL [id number]) Physical Therapy Current Condition Current Condition Evaluation Date 06/23/18 Treatment Diagnosis weakness Onset Date 06/22/18 Precautions Other Precautions C-diff M3 PT-IP Subjective Start: 06/23/18 10:07 Freq: NEEDED Status: Active Protocol: Document 06/23/18 11:05 DLM (Rec: 06/23/18 12:24 [facility] [id number]) Subjective Physical Therapy Visit Type Type Initial Evaluation Visit Start Time 10:30 Visit Stop Time 11:05 Total Visit Minutes 35 Number of PSYCHOLOGIST COUNSELING Visits 0 Physical Therapy Visit Comments Patient Comments She is frustrated with being sick so long, been struggling with C-diff since Mar Patient Goals get better Therapy Pain Assessment Pain When Pain Assessed During Mobility Pain Present Pain Present Pain Reported Location Left Hip Intensity 4 Scale Used Numeric (1 - 10) Description Aching Pain Management Techniques Modification of Treatment M4 PT-IP Mobility and Gait Start: 06/23/18 10:07 Freq: NEEDED Status: Active Protocol: Document 06/23/18 11:05 DLM (Rec: 06/23/18 12:24 [facility] [id number]) PT-Bed Mobility Assessment Supine to Sit Supine to Sit Standby Assistance Sit to Supine Sit to Supine Minimal Assistance Scooting Scooting to Edge of Bed Independent PT-Transfer Assessment Sit to and From Stand Sit to and from Stand Standby Assistance Use of Upper Extremities Equipment Transfer Assistive Device Gait Belt 4 Wheeled Walker Transfers Transfer Destination Chair Toilet Transfer Technique Stand Step Pivot Transfer Ability Level of Assist Standby Assistance Use of Upper Extremities Comments Mobility Comments new pain left hip and lateral knee since her falls at home, no bruising observed Gait Assessment Gait Gait Assistance Required: Standby Assistance Distance (Feet) 20 Assistive Devices Assistive Device Gait Belt 4 Wheeled Walker Factors Limiting Gait Function Factors Limiting Gait Function Decreased Activity Tolerance Decreased Strength Pain PT-Balance Assessment Sitting Balance and Reactions Static Sitting Balance Ability Normal Dynamic Sitting Balance Ability Normal Standing Balance and Reactions Static Standing Balance Ability Good Dynamic Standing Balance Ability Good Device Used 4WW M5 PT-IP Objective Assessments Start: 06/23/18 10:07 Freq: NEEDED Status: Active Protocol: Document 06/23/18 11:05 DLM (Rec: 06/23/18 12:24 [facility] [id number]) Orientation Orientation/Cognition Level of Alertness Alert Orientation Name Age Birthday Month Date Year Day of Week Place Situation Language Function Ability No Deficits Noted Safety Awareness Understands Safety Issues Memory Description No Deficits Noted Gross Range of Motion Upper Extremity ROM Assessment Within Functional Limits Lower Extremity ROM Assessment Within Functional Limits Strength Upper Extremity Strength Assessment Within Functional Limits Lower Extremity Strength Assessment Left Impaired Hip hip flexion 4/5 with pain Knee ext 4/5 with pain, flexion 4+/ 5 Ankle DF 5/5 Coordination Assessment Gross Coordination Gross Coordination Impaired Assessment Coordination Comments mild tremors Sensation Assessment Sensation Gross Sensation Right UE Impaired Left UE Impaired Right LE Impaired Left LE Impaired Light Touch Impaired Sensation Description Numbness Pain Comments Sensation Comments hx neuropathy in hands and feet that is managed with medications per pt Muscle Tone Muscle Tone WNL Yes M6 PT-IP Treatment Start: 06/23/18 10:07 Freq: NEEDED Status: Active Protocol: Document 06/23/18 11:05 DLM (Rec: 06/23/18 12:24 DLM [id number]) Physical Therapy Treatment Exercises Exercises Ankle Pumps Heel Slides Straight Leg Raises Seated Knee Flexion/Extension Education Education Provided Safety Equipment Issued Equipment Type and Company she has her 4WW from home in her room M7 PT-IP Assessment and Plan Start: 06/23/18 10:07 Freq: NEEDED Status: Active Protocol: Document 06/23/18 11:05 DLM (Rec: 06/23/18 12:24 DL [id number]) PT Summary Assessment and Plan Potential Rehabilitation Potential Good Status of Condition at Evaluation Evolving Summary Impairments Pain Strength Bed Mobility Activity Tolerance Assessment Summary Brit is alert and motivated to participate in physical therapy. Her activity is limited by abdominal cramping and frequent trips to toilet for BM. New left hip and knee pain reported since her falls at home before this admission. No dizziness during mobility this visit. She needs assistance to manage her IV during mobility since she uses a 4WW for all gait. She is tolerating gait in her room well with 4WW. Will continue to see her for LE strengthening and gait while hospitalized. I anticipate she will be safe to discharge home with her Spouse when she is medically stable. Goals Bed Mobility Goal Independent Gait Goal Independent Four Wheel Walker Gait Distance 150 feet Days to Meet Goals 3 Frequency of Treatment Frequency Of Treatment Once a Day Treatment Plan Physical Therapy Treatment Plan Bed Mobility Training Therapeutic Exercise Discharge Planning Recommendations To Nursing Amount of Assist Needed Standby Assistance Discharge Recommendations PT Discharge Recommendations Home with Assistance
[2018-06-23] MEDS: LEVOTHYROXINE 100 MCG TABLET PO (11:38)
[2018-06-23] MEDS: CARBIDOPA-LEVODOPA 25/100 TABLET 1 EACH PO (12:38)
--- NOTE | 2018-06-23 14:13 | PC.NURSE ---
Addendum entered by Gabriel Schultz R.N. 06/23/18 14:28: PATIENT AGAIN HAD SMALL MUCUS STOOL, THIS TIME W/ TRACE PINK TEVIN BLOOD. SIDE NOTE, PATIENT REPORTS HAD HEMRHOIDECTOMY ABOUT 3 WKS AGO. STATES SHE DOESN'T THINK SHE HAS HAD ANY BLOOD IN HER STOOLS AFTER HER PROCEDURE HOWEVER. Original Note: PATIENT 1P ASSIST W/ 4WW TO BR INTERMITT FOR URGES TO HAVE BM. SHE JUST HAS SM AMTS OF MUCUS W/ ATTEMPTS. CALLED SPOUSE THIS AM TO CONFIRM CARBIDOPA/LEVADOPA; IF CR OR IR. PER LABEL ON BOTTLE AT PATIENT'S HOME THE QID DOSE IS ALSO CR. ORDER WAS CHANGED. WE DON'T CARRY THE CR, SO PATIENT MUST BRING IN FROM HOME. MSG LEFT ON SPOUSE'S CELL PHONE, WITH REQUEST THAT HE BRING IN THE CARBIDOPA/LEVADOPA CR IN THE ORIGINAL BTL TO BE SENT TO PHARMACY AND DISPENSED.
--- NOTE | 2018-06-23 19:20 | PM.PN.1 ---
Subjective Date Patient Seen: 06/23/18 Interval history: Patient is a 72 y/o female admitted to the hospital for recurrent CDiff colitis. Patient continues to have frequent liquid stools. She describes abdominal cramping followed by bloody/mucus stool Patient reports every time she eats she has diarrhea. This is her 3 rd episode. She was initially treated with metronidazole, subsequently vancomycin po, then when tapering off recurrent CDIFF again. She feels fairly tired and weak. No further syncope today Exam Vital Signs (past 8 hours): - 06/23/18 13:00 06/23/18 15:00 06/23/18 16:36 Temperature 97.8 F 98.2 F Pulse Rate 84 87 Respiratory Rate 16 20 Blood Pressure 133/80 130/56 L Pulse Oximetry 94 97 97 Oxygen Delivery Method Room Air Oxygen Flow Rate 0 Narrative Exam Narrative: Weak ill appearing pleasant female Lungs: decreased breath sounds but clear to auscultation CV: RRR nl Sl S2 Abd: soft/ mildly tender/ no HSM Ext: no edema Objective Labs Result Diagrams: 06/23/18 06:07 06/23/18 06:07 Labs: Laboratory Results - last 24 hr 06/22/18 06/22/18 06/22/18 19:04 19:04 19:15 WBC 8.6 RBC 4.20 Hgb 13.2 Hct 38.9 MCV 92.7 MCH 31.5 MCHC 33.9 RDW 13.6 Plt Count 181 Neut % (Auto) 83.8 H Lymph % (Auto) 8.6 L [place] % (Auto) 6.9 Eos % (Auto) 0.3 L Baso % (Auto) 0.4 Neut # (Auto) 7200 H Lymph # (Auto) 700 L [place] # (Auto) 600 Eos # (Auto) 0 Baso # (Auto) 0 Sodium 136 L Potassium 3.9 Chloride 98 Carbon Dioxide 29 BUN 17 Creatinine 0.90 Estimated GFR > 60.0 BUN/Creatinine Ratio 18.9 Glucose 86 Calcium 9.1 Magnesium Total Bilirubin 0.8 AST 39 H ALT 19 Alkaline Phosphatase 114 Total Protein 7.0 Albumin 3.8 Globulin 3.2 Albumin/Globulin Ratio 1.2 Procalcitonin Stl C. cayetanensis PCR Stool Rotavirus (PCR) Stool Adenovirus (PCR) Stool Astrovirus (PCR) Stool Cryptosporidium PCR Stl E.coli Shiga Tox PCR St Sh/Enteroin Ecoli PCR Stool E coli O157 PCR Stl Enterotoxigenic E PCR Stool EPEC (PCR) Stl E. histolytica PCR Stool Giardia Lamblia PCR Stool Sapovirus (PCR) Stl P. shigelloides PCR St Y.enterocolitica PCR Stool Vibrio (PCR) Stl Vibrio cholerae PCR Stl Enteroaggr Ecoli PCR Stl Norovirus GI/GII PCR Campylobacter (PCR) C. difficile Tox (PCR) Influenza A & B (PCR) Negative Salmonella (PCR) 06/23/18 06/23/18 06/23/18 04:06 06:07 06:07 WBC 5.7 RBC 3.76 L Hgb 12.0 Hct 34.9 L MCV 93.0 MCH 31.9 MCHC 34.3 RDW 14.0 Plt Count 166 Neut % (Auto) 68.9 Lymph % (Auto) 17.6 L [place] % (Auto) 10.1 Eos % (Auto) 2.8 Baso % (Auto) 0.6 Neut # (Auto) 4000 Lymph # (Auto) 1000 L [place] # (Auto) 600 Eos # (Auto) 200 Baso # (Auto) 0 Sodium 139 Potassium 3.3 L Chloride 104 Carbon Dioxide 29 BUN 13 Creatinine 0.70 Estimated GFR > 60.0 BUN/Creatinine Ratio 18.6 Glucose 90 Calcium 8.7 Magnesium 2.0 Total Bilirubin AST ALT Alkaline Phosphatase Total Protein Albumin Globulin Albumin/Globulin Ratio Procalcitonin Stl C. cayetanensis PCR Not detected Stool Rotavirus (PCR) Not detected Stool Adenovirus (PCR) Not detected Stool Astrovirus (PCR) Not detected Stool Cryptosporidium PCR Not detected Stl E.coli Shiga Tox PCR Not detected St Sh/Enteroin Ecoli PCR Not detected Stool E coli O157 PCR Not Reportable Stl Enterotoxigenic E PCR Not detected Stool EPEC (PCR) Not detected Stl E. histolytica PCR Not detected Stool Giardia Lamblia PCR Not detected Stool Sapovirus (PCR) Not detected Stl P. shigelloides PCR Not detected St Y.enterocolitica PCR Not detected Stool Vibrio (PCR) Not detected Stl Vibrio cholerae PCR Not detected Stl Enteroaggr Ecoli PCR Not detected Stl Norovirus GI/GII PCR Not detected Campylobacter (PCR) Not detected C. difficile Tox (PCR) Detected H Influenza A & B (PCR) Salmonella (PCR) Not detected 06/23/18 06:07 WBC RBC Hgb Hct MCV MCH MCHC RDW Plt Count Neut % (Auto) Lymph % (Auto) [place] % (Auto) Eos % (Auto) Baso % (Auto) Neut # (Auto) Lymph # (Auto) [place] # (Auto) Eos # (Auto) Baso # (Auto) Sodium Potassium Chloride Carbon Dioxide BUN Creatinine Estimated GFR BUN/Creatinine Ratio Glucose Calcium Magnesium Total Bilirubin AST ALT Alkaline Phosphatase Total Protein Albumin Globulin Albumin/Globulin Ratio Procalcitonin 0.05 Stl C. cayetanensis PCR Stool Rotavirus (PCR) Stool Adenovirus (PCR) Stool Astrovirus (PCR) Stool Cryptosporidium PCR Stl E.coli Shiga Tox PCR St Sh/Enteroin Ecoli PCR Stool E coli O157 PCR Stl Enterotoxigenic E PCR Stool EPEC (PCR) Stl E. histolytica PCR Stool Giardia Lamblia PCR Stool Sapovirus (PCR) Stl P. shigelloides PCR St Y.enterocolitica PCR Stool Vibrio (PCR) Stl Vibrio cholerae PCR Stl Enteroaggr Ecoli PCR Stl Norovirus GI/GII PCR Campylobacter (PCR) C. difficile Tox (PCR) Influenza A & B (PCR) Salmonella (PCR) Assessment & Plan (1) Dehydration: Problem details: Volume Depletion, present on admission, secondary to Cdiff Colitis Current visit: Yes Status: Acute (2) Clostridium difficile infection: Problem details: Recurrent Cdiff, patient has failed 2 courses of treatment, present on admission Will start fidaxomycin 200 mg twice daily for 10 days She may need pulse taper of vancomycin if this does not work. We discuss fecal transplant as well. For now continue above. Current visit: Yes Status: Acute (3) Hypokalemia: Problem details: Will replace, present on admission Current visit: Yes Status: Acute (4) Parkinson's disease (tremor, stiffness, slow motion, unstable posture): Problem details: continue usual home regimen Current visit: Yes Status: Acute Assessment & Plan narrative: Disposition: home when no longer volume depleted and diarrhea improved. Anticipate 2-3 days
[2018-06-23] MEDS: FIDAXOMICIN 200 MG TABLET PO (20:37)
[2018-06-23] MEDS: KCL 20 MEQ IN NS 1,000 ML 100 MEQ IV (20:42)
[2018-06-23] MEDS: CARBIDOPA-LEVODOPA ER 50/200 TABLET 1 EACH PO (23:53)
[2018-06-24] VITALS (8 sets, daily range): BP systolic 134–140; BP diastolic 73–91; PULSE 79–93; RESP 16–20; TEMP 36.4–36.9; O2SAT 94–99
--- NOTE | 2018-06-24 01:23 | PC.NURSE ---
2300- Pt admit for cdiff; on contact enteric precautions. Upon initial assessment w/ this RN, pt needed to use the bathroom. Moving SBA w/ walker, had a small slightly loose BM. NS w/ K+ running per order. Lungs diminished at bases; pt has Parkinson's at baseline as well. 0015- Night PO meds given. Pt's Cloazepam is not currently ordered, she states she takes 1mg every night at 0000. Also, he antidepressant med is ordered for 3x/day. This is a problem she stated. Will pass onto to day RN to speak w/ MD. No diff swallowing, no other needs.
[2018-06-24] MEDS: LEVOTHYROXINE 100 MCG TABLET PO (04:00)
[2018-06-24 05:43] LABS: Add Manual Diff / Slide Review NO; Basophils Absolute Auto 0 /uL (0-100); Basophils Percent Auto 0.5 % (0-2); Eosinophils Absolute Auto 200 /uL (0-450); Eosinophils Percent Auto 2.9 % (2-4); Hematocrit 37.3 % (36-46); Hemoglobin 12.5 g/dL (12.0-16.0); Lymphocytes Absolute Auto 900 /uL (1100-4500); Lymphocytes Percent Auto 13.5 % (25-40); Mean Corpuscular HGB Conc 33.6 % (30-36); Mean Corpuscular Hemoglobin 31.1 PG (26-34); Mean Corpuscular Volume 92.7 fL (80-100); Monocytes Absolute Auto 900 /uL (0-900); Monocytes Percent Auto 13.1 % (3-14); Neutrophils Absolute Auto 4900 /uL (1500-7000); Platelet Count 182 X10^3/uL (150-400); Red Blood Cell Count 4.02 X10^6/uL (4.0-5.2); Red Cell Distribution Width 13.7 % (11.6-14.8)
[2018-06-24 06:08] LABS: Blood Urea Nitrogen 6 mg/dL (7-17); Calcium 8.9 mg/dL (8.4-10.2); Carbon Dioxide 27 mmol/L (22-32); Chloride 105 mmol/L (98-107); Estimated Glomerular Filt Rate > 60.0 mL/min (>60); Glucose 85 mg/dL (80-110); HEMOLYSIS < 15 (0-50); Potassium 3.3 mmol/L (3.4-5.1); Sodium 139 mmol/L (137-145)
--- NOTE | 2018-06-24 06:35 | P.PN_ITS ---
Subjective Date Patient Seen: 06/24/18 Interval history: Brit Forman is a 72-year-old female with a past medical history significant for Parkinson's disease, hypothyroidism, and recurrent C. difficile infection who presented for syncopal episodes, low blood pressure, and dizziness and admitted for recurrent C. difficile infection. The patient is resting in bed comfortably. She reports she is feels sign ificantly better since yesterday. Her stool output has slowed down substantially but continues to have mucoid loose stool with mild blood streaking from hemorrhoids. She endorses mild headache and generalized weakness. Otherwise she denies cough, shortness of breath, chest pain, abdominal pain, n ausea, vomiting, fever, chills, or dysuria She is voiding (incontinent) and eliminating without difficulty. He or she is up ambulating without or with assistance. She describes abdominal cramping followed by bloody/mucus stool Exam Vital Signs (past 8 hours): - 06/23/18 23:46 06/24/18 04:26 Temperature 97.9 F 97.9 F Pulse Rate 90 93 H Respiratory Rate 20 18 Blood Pressure 137/83 138/91 H Pulse Oximetry 92 95 Oxygen Delivery Method Room Air Oxygen Flow Rate 0 Narrative Exam Narrative: General: Elderly female resting in bed comfortably and in no acute distress, well-developed, well-nourished, parkinsonian tremor, appropriately interactive. HEENT: Normocephalic, atraumatic. External ears without defect. Pupils equal, round, and reactive to light. Anicteric sclerae, moist conjunctivae, and no lid lag. Neck: Supple with full range of motion. No lymphadenopathy or thyromegaly. Cardiovascular: Regular rate and rhythm without murmurs, rubs, or gallops appreciated Pulmonary: Clear to auscultation bilaterally without crackles, wheezes, or rhonchi. Normal respiratory effort with no use of accessory muscles. Abdomen: Soft, bowel sounds present, nontender, nondistended. No hepatosplenom egaly or masses appreciated. Extremities: No clubbing, cyanosis, or edema. Skin: Normal temperature, turgor, and texture; no rash, ulcers, or subcutaneous nodules appreciated. Neurological: Cranial nerves grossly intact. Masked facies. Psychiatric: Normal mood and affect. Alert and oriented to person, place, and time. Objective Labs Result Diagrams: 06/24/18 05:05 06/24/18 05:05 Labs: Laboratory Results - last 24 hr 06/23/18 06/23/18 06/23/18 04:06 06:07 06:07 WBC 5.7 RBC 3.76 L Hgb 12.0 Hct 34.9 L MCV 93.0 MCH 31.9 MCHC 34.3 RDW 14.0 Plt Count 166 Neut % (Auto) 68.9 Lymph % (Auto) 17.6 L [place] % (Auto) 10.1 Eos % (Auto) 2.8 Baso % (Auto) 0.6 Neut # (Auto) 4000 Lymph # (Auto) 1000 L [place] # (Auto) 600 Eos # (Auto) 200 Baso # (Auto) 0 Sodium 139 Potassium 3.3 L Chloride 104 Carbon Dioxide 29 BUN 13 Creatinine 0.70 Estimated GFR > 60.0 BUN/Creatinine Ratio 18.6 Glucose 90 Calcium 8.7 Magnesium 2.0 Procalcitonin Stl C. cayetanensis PCR Not detected Stool Rotavirus (PCR) Not detected Stool Adenovirus (PCR) Not detected Stool Astrovirus (PCR) Not detected Stool Cryptosporidium PCR Not detected Stl E.coli Shiga Tox PCR Not detected St Sh/Enteroin Ecoli PCR Not detected Stool E coli O157 PCR Not Reportable Stl Enterotoxigenic E PCR Not detected Stool EPEC (PCR) Not detected Stl E. histolytica PCR Not detected Stool Giardia Lamblia PCR Not detected Stool Sapovirus (PCR) Not detected Stl P. shigelloides PCR Not detected St Y.enterocolitica PCR Not detected Stool Vibrio (PCR) Not detected Stl Vibrio cholerae PCR Not detected Stl Enteroaggr Ecoli PCR Not detected Stl Norovirus GI/GII PCR Not detected Campylobacter (PCR) Not detected C. difficile Tox (PCR) Detected H Salmonella (PCR) Not detected 06/23/18 06/24/18 06/24/18 06:07 05:05 05:05 WBC 7.0 RBC 4.02 Hgb 12.5 Hct 37.3 MCV 92.7 MCH 31.1 MCHC 33.6 RDW 13.7 Plt Count 182 Neut % (Auto) 70.0 Lymph % (Auto) 13.5 L [place] % (Auto) 13.1 Eos % (Auto) 2.9 Baso % (Auto) 0.5 Neut # (Auto) 4900 Lymph # (Auto) 900 L [place] # (Auto) 900 Eos # (Auto) 200 Baso # (Auto) 0 Sodium 139 Potassium 3.3 L Chloride 105 Carbon Dioxide 27 BUN 6 L Creatinine 0.60 Estimated GFR > 60.0 BUN/Creatinine Ratio 10.0 Glucose 85 Calcium 8.9 Magnesium Procalcitonin 0.05 Stl C. cayetanensis PCR Stool Rotavirus (PCR) Stool Adenovirus (PCR) Stool Astrovirus (PCR) Stool Cryptosporidium PCR Stl E.coli Shiga Tox PCR St Sh/Enteroin Ecoli PCR Stool E coli O157 PCR Stl Enterotoxigenic E PCR Stool EPEC (PCR) Stl E. histolytica PCR Stool Giardia Lamblia PCR Stool Sapovirus (PCR) Stl P. shigelloides PCR St Y.enterocolitica PCR Stool Vibrio (PCR) Stl Vibrio cholerae PCR Stl Enteroaggr Ecoli PCR Stl Norovirus GI/GII PCR Campylobacter (PCR) C. difficile Tox (PCR) Salmonella (PCR) Assessment & Plan Assessment & Plan narrative: Brit Forman is a 72-year-old female with a past medical history significant for Parkinson's disease, hypothyroidism, and recurrent C. difficile infection who presented for syncopal episodes, low blood pressure, and dizziness and admitted for recurrent C. difficile infection. 1. Acute on chronic clostridium difficile infection, present on admission. Active. -Initial episode of C. difficile was March 31, 2017 following exposure to multiple antibiotics related to knee surgery and subsequently clindamycin for dental infection. -Symptomatic with mucoid watery stools and completed course of metronidazole and oral vancomycin for 2 weeks. -Normal WBC. Negative influenza screen. GI PCR demonstrated C. difficile infection. -Continue fidaxomycin 200 mg twice daily for 10 days. She may need pulse taper of vancomycin if this does not work or fecal transplant. 2. Acute severe dehydration, present on admission. Resolving. -Received 2 L of LR at urgent care and 1L NS in ED. Patient continues to report orthostasis. -Continue normal saline with 20 mEq KCL at 100 cc/hour. 3. Parkinsonism, chronic present on admission. Stable. -Continue amantadine 100 mg twice daily and carbidopa levodopa ER 25/100 mg 4 times daily and 50/100 mg at midnight. -Continue physical therapy evaluation and treatment for motor instability. 4. Status post infected left total knee replacement, chronic, present on ad mission. Stable. -The patient has ongoing left knee pain but is not taking oral pain medication. -Continue PT evaluation of gait disturbance related to both muscular instability from Parkinson's versus mechanical disability related to her total knee. 5. Hypothyroidism, chronic, present on admission. Presumed stable. -Ordered TSH, pending. -Continue levothyroxine 100 mcg daily. Disposition: Likely discharged in 1-2 days either to senior care facility for rehabilitation due to generalized weakness or home with home health.
[2018-06-24] MEDS: FIDAXOMICIN 200 MG TABLET PO ×2 (08:47→21:23)
[2018-06-24] MEDS: GABAPENTIN 100 MG CAPSULE 200 MG PO ×4 (08:47→21:23)
[2018-06-24] MEDS: DULOXETINE 30 MG CAPSULE PO (08:48)
[2018-06-24] MEDS: CARBIDOPA LEVODOPA 1 EACH PO ×4 (08:48→21:23)
[2018-06-24] MEDS: AMANTADINE 100 MG CAPSULE PO ×2 (08:48→16:51)
[2018-06-24] MEDS: POTASSIUM CHLORIDE 40 MEQ in SODIUM CHLORIDE 0.9% 500 ML 130 ML IV (08:49)
[2018-06-24] MEDS: KCL 20 MEQ IN NS 1,000 ML 100 MEQ IV ×2 (09:21→23:42)
[2018-06-24] MEDS: ONDANSETRON 4 MG/2 ML INJ IV (09:22)
[2018-06-24] MEDS: ENOXAPARIN 40 MG/0.4 ML SYRINGE SUBCUT (11:54)
--- NOTE | 2018-06-24 12:44 | PT.IPTN ---
Current Diagnoses Enterocolitis due to Clostridium difficile, recurrent (06/22/18) Other bacterial infections of unspecified site (06/22/18) Dehydration (06/22/18) Hypokalemia (06/22/18) Parkinson's disease (06/22/18) Physical Therapy Treatment Note M2 PT-IP Current Condition Start: 06/23/18 10:07 Freq: NEEDED Status: Active Protocol: Document 06/23/18 11:05 DLM (Rec: 06/23/18 12:24 DLM [id number]) Physical Therapy Current Condition Current Condition Evaluation Date 06/23/18 Treatment Diagnosis weakness Onset Date 06/22/18 Precautions Other Precautions C-diff M3 PT-IP Subjective Start: 06/23/18 10:07 Freq: NEEDED Status: Active Protocol: Document 06/24/18 12:32 SA (Rec: 06/24/18 12:44 SA [id number]) Subjective Physical Therapy Visit Type Type Treatment Note Visit Start Time 11:53 Visit Stop Time 12:16 Total Visit Minutes 23 Number of AUTOMATIC TYPEWRITER INSPECTOR Visits 1 Physical Therapy Visit Comments Patient Comments Pt motivated to get better, tired of being ill. Patient Goals To go home with . Therapy Pain Assessment Pain When Pain Assessed During Mobility Pain Present Pain Present Denied Pain M4 PT-IP Mobility and Gait Start: 06/23/18 10:07 Freq: NEEDED Status: Active Protocol: Document 06/24/18 12:32 SA (Rec: 06/24/18 12:44 SA [id number]) PT-Bed Mobility Assessment Rolling Type of Rolling Roll to Left Level of Assist Standby Assistance Supine to Sit Supine to Sit Standby Assistance Sit to Supine Sit to Supine Minimal Assistance Scooting Scooting to Edge of Bed Independent Scooting Up and Down in Bed Independent PT-Transfer Assessment Sit to and From Stand Sit to and from Stand Standby Assistance Use of Upper Extremities Equipment Transfer Assistive Device Gait Belt 4 Wheeled Walker Orthotic/Prosthetic Devices or Brace: No Transfers Transfer Destination Bed Chair Transfer Technique Stand Step Pivot Transfer Ability Level of Assist Standby Assistance Use of Upper Extremities Comments Mobility Comments No c/o pain with mobility today, Uses 4WW safely. SBA- CGA with txs and bed mobility except for sit to supine where she needs help for clearing LEs over EOB. Pt states her helps her with this at home. Gait Assessment Gait Gait Assistance Required: Standby Assistance Distance (Feet) 25 Able to Maintain Weight Bearing Status Yes During Gait Assistive Devices Assistive Device Gait Belt 4 Wheeled Walker Gait Deviations General Gait Pattern Antalgic Flexed Trunk Factors Limiting Gait Function Factors Limiting Gait Function Decreased Activity Tolerance Decreased Strength Pain Comments Gait Comments Gait trainng in room with frequent turns and pt managing 4WW well, min cues for safety and this AUTOMATIC TYPEWRITER INSPECTOR managing IV pole . PT-Balance Assessment Sitting Balance and Reactions Static Sitting Balance Ability Normal Dynamic Sitting Balance Ability Normal M5 PT-IP Objective Assessments Start: 06/23/18 10:07 Freq: NEEDED Status: Active Protocol: Document 06/23/18 11:05 DLM (Rec: 06/23/18 12:24 DLM [id number]) Orientation Orientation/Cognition Level of Alertness Alert Orientation Name Age Birthday Month Date Year Day of Week Place Situation Language Function Ability No Deficits Noted Safety Awareness Understands Safety Issues Memory Description No Deficits Noted Gross Range of Motion Upper Extremity ROM Assessment Within Functional Limits Lower Extremity ROM Assessment Within Functional Limits Strength Upper Extremity Strength Assessment Within Functional Limits Lower Extremity Strength Assessment Left Impaired Hip hip flexion 4/5 with pain Knee ext 4/5 with pain, flexion 4+/ 5 Ankle DF 5/5 Coordination Assessment Gross Coordination Gross Coordination Impaired Assessment Coordination Comments mild tremors Sensation Assessment Sensation Gross Sensation Right UE Impaired Left UE Impaired Right LE Impaired Left LE Impaired Light Touch Impaired Sensation Description Numbness Pain Comments Sensation Comments hx neuropathy in hands and feet that is managed with medications per pt Muscle Tone Muscle Tone WNL Yes M6 PT-IP Treatment Start: 06/23/18 10:07 Freq: NEEDED Status: Active Protocol: Document 06/24/18 12:32 (Rec: 06/24/18 12:44 [id number]) Physical Therapy Treatment Exercises Exercises Ankle Pumps Heel Slides Straight Leg Raises Seated Knee Flexion/Extension Education Education Provided Safety M7 PT-IP Assessment and Plan Start: 06/23/18 10:07 Freq: NEEDED Status: Active Protocol: Document 06/24/18 12:32 (Rec: 06/24/18 12:44 [id number]) PT Summary Assessment and Plan Potential Rehabilitation Potential Good Status of Condition at Evaluation Evolving Summary Assessment Summary Pt tolerated PT well, did not need a trip to bathroom but had just finished up prior to PT session. Safe with 4WW but fatigues rapidly d/t C-diff and prolonged decreased activity levels. Frequency of Treatment Frequency Of Treatment Once a Day Treatment Plan Physical Therapy Treatment Plan Bed Mobility Training Therapeutic Exercise Discharge Planning Recommendations To Nursing Amount of Assist Needed Standby Assistance
--- NOTE | 2018-06-24 15:24 | PC.NURSE ---
GI: Feels a little stronger today. Reports 5 liquid stools for this shift. Said she had been going hourly at home. K-rider infusing, rate had to be decreased due to stinging at the IV site. Pt reports numerous attempts for IV placement in ED and up on floor. MD made aware. See new orders. Up and amb in room, gait slow, but is steady. has hx of parkinsons. Nausea this am, minimal amt of bkft taken, received zofran and feltt better and was able to take a sm amt of her diet. Resting quietly at the moment. Cont w/poc.
--- NOTE | 2018-06-24 16:33 | CM.IDA ---
Discharge Planning/Care Management CM Discharge Assessment Start: 06/24/18 16:25 Freq: Status: Active Protocol: Document 06/24/18 16:26 MAME (Rec: 06/24/18 16:33 MAME [id number]) Discharge Planning Assessment Assigned [employer] Crew Chief ZULEYMA Hanks DPOA/Assigned Designee Name Dieudonne Forman, spouse Contact Information [phone] Advance Directives? No History Provided By Patient Medical Record Prior Living Arrangements House Household Members spouse Type of transporation used prior to Relies on Others admit Independent with ADL's No Is patient alert and oriented? Yes Comment From Initial PT Eval: Independent gait with 4WW in her home, Spouse helps her up/ down the steps at the entrance , she gets help with shelley over in bed Activities of Daily Living and IADL's Spouse assists her with toileting and showers. Her Spouse does the cooking, cleaning and laundry. She has a bight maker who does the bigger cleaning. Prior Functional Level (Other details) Parkinsons symptoms Her out-pt Physical Therapy was stopped due to the infection in left knee then onset of C-diff. Caregiver for Another No Patient/Family Preference Home Comment R/o need for Home Health upon DC Barriers to Discharge No Comment Pt is Hospital Day 3 after presenting w/CDiff and severe dehydration. Dr Martinez awaiting stool output to improve before DC home. Payer: Medicare/[employer]. Reviewed chart and discussed pt in multi-disciplinary rounds. Pt plans to DC home w/ spouse to assist. Pt remains weak but has improved greatly and it is expected she will be able to safely return home upon medical clearance w/no SW needs or barriers. Following closely, will plan to assess further and r/o need for HH closer to DC. ZULEYMA Hutchinson Discharge Plan Home Transportation Arrangement Family Referrals Initiated None needed Additional Comment R/O need for HH closer to DC, SBA at this time w/ PT
[2018-06-24 17:21] LABS: Thyroid Stimulating Hormone 1.15 uIU/mL (0.47-4.68)
--- NOTE | 2018-06-24 18:27 | PC.NURSE ---
Addendum entered by Echo Fan R.N. 06/24/18 23:00: late note: I clarified amantadine & duloxetine doses & frequencies, as patient reporting does not take those meds how they are ordered in our MAR. I changed amantadine frequencies from 8/8 to 8am and 4pm as patient said I never take that past 5--it would keep me awake all night. I notified Dr Yates who ordered ok to change Duloxetine to once/day (was ordered q8h??) and ordered Clonazepam HS prn per patient request. Pt reports she had also asked for this last night. She told me she no longer takes alprazolam and her also verified that she takes Clonazepam not Alprazolam. Pt refused Clonazepam at HS 2100 & requests to have it at midnight per her normal home schedule. I updated home med list as much as possible but unable to completely DC alprazolam off of the list. Original Note: Addendum entered by Echo Fan R.N. 06/24/18 22:45: Mu from [facility] here to place PICC line, patient now has DL midclavicular PICC line in left upper arm, both lumens drawing back bright red blood, flushing with no difficulty. LFA PIV removed, pressure drsg applied, IVF now infusing to PICC line. Pt reporting HOGUE and neck pain tonight, medicated her with 2 TYlenol. She has been up to bathroom approx q1-2 hours voiding & having small loose BM's. Does report intermittent abd cramping. Ox3 and using call button appropriately. Remains on Enteric Precautions for C diff. Original Note: Evening note: Brit resting in bed, ox3, ambulated to BR, had one void and small loose BM, stool appears as pale brown sawdust. No blood observed in toilet or on wipe, pt reporting recent problem with hemorrhoids. C Diff teaching explained as spouse here in room and asking how he should be cleaning their home to get rid of C diff. Dr Martinez in room to discuss diagnosis/plan to spouse & her spouse, I am printing out C diff eduation for them. PICC nurse in to place PICC for IVF, as IV to LFA was bothering patient & she has poor venous access, having many attempts since here in hospital.
[2018-06-24] MEDS: ACETAMINOPHEN 325 MG TABLET 650 MG PO (21:22)
[2018-06-25] VITALS (8 sets, daily range): BP systolic 125–146; BP diastolic 67–97; PULSE 70–88; RESP 16–20; TEMP 36.4–36.9; O2SAT 94–98
[2018-06-25] MEDS: GABAPENTIN 100 MG CAPSULE 200 MG PO ×6 (01:02→23:44)
[2018-06-25] MEDS: CARBIDOPA-LEVODOPA ER 50/200 TABLET 1 EACH PO ×2 (01:02→23:45)
[2018-06-25] MEDS: clonazePAM 0.5 MG TABLET 1 MG PO ×2 (01:02→23:44)
--- NOTE | 2018-06-25 01:50 | PC.NURSE ---
2300- Pt resting in bed; new 2 lumen PICC in upper left arm running NS + KCL as ordered. 2nd lumen flushed w/ saline & good blood return noted. Pt denies any pain, hyperactive bowel sounds noted. Parkinson's at baseline, tremors noted/diff walking at times. Using home walker in room. One episode of loose bowels since start of shift, however pt states they are slowing down immensely. Sorting out pt's home med schedule, will give meds @ 0100 as she has instructed. 0100- PO meds swallowed w/o difficulty. Pt up to bathroom SBA, steady at this time. 0600- 4 BM episodes thru the night. Pt states they are getting less and less w/ mere smears noted on brief. NS +KCL running as ordered.
[2018-06-25] MEDS: LEVOTHYROXINE 100 MCG TABLET PO (04:16)
[2018-06-25 05:54] LABS: Add Manual Diff / Slide Review NO; Basophils Absolute Auto 0 /uL (0-100); Basophils Percent Auto 0.9 % (0-2); Eosinophils Absolute Auto 200 /uL (0-450); Hematocrit 36.6 % (36-46); Hemoglobin 12.4 g/dL (12.0-16.0); Lymphocytes Absolute Auto 1200 /uL (1100-4500); Lymphocytes Percent Auto 20.8 % (25-40); Mean Corpuscular HGB Conc 33.8 % (30-36); Mean Corpuscular Hemoglobin 31.4 PG (26-34); Monocytes Absolute Auto 700 /uL (0-900); Neutrophils Absolute Auto 3500 /uL (1500-7000); Neutrophils Percent Auto 61.3 % (50-75); Platelet Count 190 X10^3/uL (150-400); Red Blood Cell Count 3.93 X10^6/uL (4.0-5.2); Red Cell Distribution Width 13.5 % (11.6-14.8); White Blood Cell Count 5.8 X10^3/uL (4.5-11.0)
[2018-06-25 06:31] LABS: Alanine Aminotransferase 19 IU/L (9-52); Albumin 3.3 g/dL (3.5-5.0); Albumin Globulin Ratio 1.1 (1.0-2.8); Alkaline Phosphatase 126 U/L (38-126); Aspartate Aminotransferase 45 IU/L (14-36); Bilirubin Total 0.7 mg/dL (0.2-1.3); Blood Urea Nitrogen 3 mg/dL (7-17); Calcium 9.1 mg/dL (8.4-10.2); Carbon Dioxide 28 mmol/L (22-32); Chloride 104 mmol/L (98-107); Estimated Glomerular Filt Rate > 60.0 mL/min (>60); Glucose 84 mg/dL (80-110); HEMOLYSIS < 15 (0-50); Potassium 3.7 mmol/L (3.4-5.1); Sodium 139 mmol/L (137-145); Total Protein 6.3 g/dL (6.3-8.2)
[2018-06-25 06:50] LABS: Procalcitonin < 0.05 ng/mL (<0.5)
--- NOTE | 2018-06-25 08:14 | P.PN_ITS ---
Subjective Date Patient Seen: 06/25/18 Interval history: Brit Forman is a 72-year-old female with a past medical history significant for Parkinson's disease, hypothyroidism, and recurrent C. difficile infection who presented for syncopal episodes, low blood pressure, and dizziness and admitted for recurrent C. difficile infection. The patient is resting in bed comfortably. She continues to reports she feels remarkably better. Her stool output continues to slow down and has minimal today (3 smears). She endorses rigidity and generalized weakness today when walking with physical therapy. She denies cough, shortness of breath, chest pain, abdominal pain, nausea, vomiting, fever, chills, or dysuria. She is voiding (incontinent) and eliminating without difficulty. She is up ambulating with assistance. Exam Vital Signs (past 8 hours): - 06/25/18 03:00 Temperature 98.5 F Pulse Rate 82 Respiratory Rate 16 Blood Pressure 135/85 Pulse Oximetry 94 Oxygen Delivery Method Room Air Oxygen Flow Rate 0 Narrative Exam Narrative: General: Elderly female resting in bed comfortably and in no acute distress, well-developed, well-nourished, parkinsonian tremor, appropriately interactive. HEENT: Normocephalic, atraumatic. External ears without defect. Pupils equal, round, and reactive to light. Anicteric sclerae, moist conjunctivae, and no lid lag. Neck: Supple with full range of motion. No lymphadenopathy or thyromegaly. Cardiovascular: Regular rate and rhythm without murmurs, rubs, or gallops appreciated Pulmonary: Clear to auscultation bilaterally without crackles, wheezes, or rhonchi. Normal respiratory effort with no use of accessory muscles. Abdomen: Soft, bowel sounds present, nontender, nondistended. No hepatosplenomegaly or masses appreciated. Extremities: No clubbing, cyanosis, or edema. Skin: Normal temperature, turgor, and texture; no rash, ulcers, or subcutaneous nodules appreciated. Neurological: Cranial nerves grossly intact. Mild masked facies. Parkinsonian tremor. Cogwheel rigidity. Psychiatric: Normal mood and affect. Alert and oriented to person, place, and time. Objective Labs Result Diagrams: 06/25/18 05:28 06/25/18 05:28 Labs: Laboratory Results - last 24 hr 06/24/18 06/25/18 06/25/18 05:05 05:28 05:28 WBC 5.8 RBC 3.93 L Hgb 12.4 Hct 36.6 MCV 93.0 MCH 31.4 MCHC 33.8 RDW 13.5 Plt Count 190 Neut % (Auto) 61.3 Lymph % (Auto) 20.8 L [place] % (Auto) 13.0 Eos % (Auto) 4.0 Baso % (Auto) 0.9 Neut # (Auto) 3500 Lymph # (Auto) 1200 [place] # (Auto) 700 Eos # (Auto) 200 Baso # (Auto) 0 Sodium Potassium Chloride Carbon Dioxide BUN Creatinine Estimated GFR BUN/Creatinine Ratio Glucose Calcium Total Bilirubin AST ALT Alkaline Phosphatase Total Protein Albumin Globulin Albumin/Globulin Ratio Procalcitonin < 0.05 TSH 1.15 06/25/18 05:28 WBC RBC Hgb Hct MCV MCH MCHC RDW Plt Count Neut % (Auto) Lymph % (Auto) [place] % (Auto) Eos % (Auto) Baso % (Auto) Neut # (Auto) Lymph # (Auto) [place] # (Auto) Eos # (Auto) Baso # (Auto) Sodium 139 Potassium 3.7 Chloride 104 Carbon Dioxide 28 BUN 3 L Creatinine 0.50 L Estimated GFR > 60.0 BUN/Creatinine Ratio 6.0 Glucose 84 Calcium 9.1 Total Bilirubin 0.7 AST 45 H ALT 19 Alkaline Phosphatase 126 Total Protein 6.3 Albumin 3.3 L Globulin 3.0 Albumin/Globulin Ratio 1.1 Procalcitonin TSH Assessment & Plan Assessment & Plan narrative: Brit Forman is a 72-year-old female with a past medical history significant for Parkinson's disease, hypothyroidism, and recurrent C. difficile infection who presented for syncopal episodes, low blood pressure, and dizziness and admitted for recurrent C. difficile infection. 1. Acute on chronic clostridium difficile infection, present on admission. Improving. -Initial episode of C. difficile was March 31, 2017 following exposure to multiple antibiotics related to knee surgery and subsequently clindamycin for dental infection. -Symptomatic with mucoid watery stools and completed course of metronidazole and oral vancomycin for 2 weeks. -Normal WBC. Negative influenza screen. GI PCR demonstrated C. difficile infection. -Continue fidaxomycin 200 mg twice daily for 10 days until 07/02. She may need pulse taper of vancomycin if this does not work or fecal transplant. 2. Acute severe dehydration, present on admission. Resolved. -Received 2 L of LR at urgent care and 1L NS in ED. -Continued normal saline with 20 mEq KCL at 100 cc/hour until adequately hydrated today. Stool output has slowed down substantially. 3. Acute hypokalemia secondary to diarrhea, not present on admission. Improving. -Potassium was 3.3 at lowest. Now 3.7. Will replete as necessary. -continue to monitor potassium daily. 4. Parkinsonism, chronic present on admission. Stable. -Continue amantadine 100 mg twice daily and carbidopa levodopa ER 25/100 mg 4 times daily and 50/100 mg at midnight. -Continue physical therapy evaluation and treatment for motor instability. 5. Status post infected left total knee replacement, chronic, present on admission. Stable. -The patient has ongoing left knee pain but is not taking oral pain medication. -Continue PT evaluation of gait disturbance related to both muscular instability from Parkinson's versus mechanical disability related to her total knee. 6. Hypothyroidism, chronic, present on admission. Presumed stable. -TSH within normal limits at 1.15. -Continue levothyroxine 100 mcg daily. Disposition: Likely to discharge home tomorrow with home health.
[2018-06-25 08:23] LABS: Magnesium 1.6 mg/dL (1.6-2.3)
[2018-06-25] MEDS: ENOXAPARIN 40 MG/0.4 ML SYRINGE SUBCUT (08:59)
[2018-06-25] MEDS: DULOXETINE 30 MG CAPSULE PO (09:00)
[2018-06-25] MEDS: FIDAXOMICIN 200 MG TABLET PO ×2 (09:00→20:42)
[2018-06-25] MEDS: CARBIDOPA LEVODOPA 1 EACH PO ×4 (09:00→20:43)
[2018-06-25] MEDS: AMANTADINE 100 MG CAPSULE PO ×2 (09:03→17:04)
--- NOTE | 2018-06-25 10:13 | PT.IPTN ---
Current Diagnoses Enterocolitis due to Clostridium difficile, recurrent (06/22/18) Other bacterial infections of unspecified site (06/22/18) Dehydration (06/22/18) Hypokalemia (06/22/18) Parkinson's disease (06/22/18) Physical Therapy Treatment Note M2 PT-IP Current Condition Start: 06/23/18 10:07 Freq: NEEDED Status: Active Protocol: Document 06/23/18 11:05 DLM (Rec: 06/23/18 12:24 DLM [id number]) Physical Therapy Current Condition Current Condition Evaluation Date 06/23/18 Treatment Diagnosis weakness Onset Date 06/22/18 Precautions Other Precautions C-diff M3 PT-IP Subjective Start: 06/23/18 10:07 Freq: NEEDED Status: Active Protocol: Document 06/25/18 09:24 MAYLIN (Rec: 06/25/18 10:13 MAYLIN [id number]) Subjective Physical Therapy Visit Type Type Treatment Note Visit Start Time 09:24 Visit Stop Time 09:52 Total Visit Minutes 38 Notes Pt in chair finishing breakfast. Waiting for meds. Willing to get up and ambulate but reports being shakey d/t lack of meds. M4 PT-IP Mobility and Gait Start: 06/23/18 10:07 Freq: NEEDED Status: Active Protocol: Document 06/25/18 09:24 MAYLIN (Rec: 06/25/18 10:13 MAYLIN [id number]) PT-Transfer Assessment Sit to and From Stand Sit to and from Stand Standby Assistance Use of Upper Extremities Equipment Transfer Assistive Device Gait Belt 4 Wheeled Walker Orthotic/Prosthetic Devices or Brace: No Transfers Transfer Destination Bed Transfer Technique Stand Step Pivot Transfer Ability Level of Assist Standby Assistance Use of Upper Extremities Comments Mobility Comments Pt experienced slight dizziness upon standing but it passed quickly. Ambulated in hallway with 1 standing rest break for a total of ~180' requiring cues x2 for steering walker away from wall. As pt was turning to clear IV and back to edge of bed she experienced slight loss of balance. Upon returning to bed she was able to clear her legs indep. [place] dizzy for several minutes and lay flat until the dizziness subsided. Indep. positioned her bed to her comfort. Gait Assessment Gait Gait Assistance Required: Standby Assistance Distance (Feet) 180 Able to Maintain Weight Bearing Status Yes During Gait Assistive Devices Assistive Device Gait Belt 4 Wheeled Walker Gait Deviations General Gait Pattern Antalgic Flexed Trunk Factors Limiting Gait Function Factors Limiting Gait Function Decreased Activity Tolerance Decreased Strength Pain Comments Gait Comments Steady gait and pacing. Requires cues x2 for steering walker away from wall (to left ). Slight LOB when backing up to edge of bed. Pt states this is due to not having her meds on time. PT-Balance Assessment Sitting Balance and Reactions Static Sitting Balance Ability Normal Dynamic Sitting Balance Ability Normal Standing Balance and Reactions Static Standing Balance Ability Good Dynamic Standing Balance Ability Good Device Used 4WW M5 PT-IP Objective Assessments Start: 06/23/18 10:07 Freq: NEEDED Status: Active Protocol: Document 06/23/18 11:05 DLM (Rec: 06/23/18 12:24 DLM [id number]) Orientation Orientation/Cognition Level of Alertness Alert Orientation Name Age Birthday Month Date Year Day of Week Place Situation Language Function Ability No Deficits Noted Safety Awareness Understands Safety Issues Memory Description No Deficits Noted Gross Range of Motion Upper Extremity ROM Assessment Within Functional Limits Lower Extremity ROM Assessment Within Functional Limits Strength Upper Extremity Strength Assessment Within Functional Limits Lower Extremity Strength Assessment Left Impaired Hip hip flexion 4/5 with pain Knee ext 4/5 with pain, flexion 4+/ 5 Ankle DF 5/5 Coordination Assessment Gross Coordination Gross Coordination Impaired Assessment Coordination Comments mild tremors Sensation Assessment Sensation Gross Sensation Right UE Impaired Left UE Impaired Right LE Impaired Left LE Impaired Light Touch Impaired Sensation Description Numbness Pain Comments Sensation Comments hx neuropathy in hands and feet that is managed with medications per pt Muscle Tone Muscle Tone WNL Yes M6 PT-IP Treatment Start: 06/23/18 10:07 Freq: NEEDED Status: Active Protocol: Document 06/24/18 12:32 SA (Rec: 06/24/18 12:44 SA [id number]) Physical Therapy Treatment Exercises Exercises Ankle Pumps Heel Slides Straight Leg Raises Seated Knee Flexion/Extension Education Education Provided Safety M7 PT-IP Assessment and Plan Start: 06/23/18 10:07 Freq: NEEDED Status: Active Protocol: Document 06/25/18 09:24 LJ (Rec: 06/25/18 10:13 LJ [id number]) PT Summary Assessment and Plan Potential Rehabilitation Potential Good Status of Condition at Evaluation Evolving Summary Assessment Summary Pt experienced slight dizziness upon standing but it passed quickly. Ambulated in hallway with 1 standing rest break for a total of ~180' requiring cues x2 for steering walker away from wall. As pt was turning to clear IV and back to edge of bed she experienced slight loss of balance. Upon returning to bed she was able to clear her legs indep. [place] dizzy for several minutes and lay flat until the dizziness subsided. Indep. positioned her bed to her comfort. Increased activity tolerance. Goals Bed Mobility Goal Independent Gait Goal Independent Four Wheel Walker Gait Distance 150 feet Days to Meet Goals 3 Frequency of Treatment Frequency Of Treatment Once a Day Treatment Plan Physical Therapy Treatment Plan Bed Mobility Training Therapeutic Exercise Discharge Planning Recommendations To Nursing Amount of Assist Needed 1 Person Assist Discharge Recommendations PT Discharge Recommendations Home with Assistance
[2018-06-25] MEDS: POTASSIUM CHLORIDE 40 MEQ in SODIUM CHLORIDE 0.9% 500 ML 130 ML IV (10:36)
[2018-06-25] MEDS: ACETAMINOPHEN 325 MG TABLET 650 MG PO (10:45)
--- NOTE | 2018-06-25 16:41 | CM.DPNOTE ---
This DATA W[employer] SPECIALIST spoke w/therapy team this morning re: SNF vs Home w/ HH ? PT feels pt will be safe to return home which is what pt and spouse want. Spouse capable of assisting at home. Attempted to speak w/pt today to review DCP and she was sleeping soundly. F2F signed by Dr Mratinez, referral to HH still needed. Following for coordination of safe DCP. P: DC likely in another 48 hrs, w/ family and HH ZULEYMA Hutchinson
[2018-06-25] MEDS: MAGNESIUM SULFATE 2 GM/50 ML PIGGYBACK IV (18:55)
[2018-06-26 00:01] VITALS: O2SAT 96
[2018-06-26] MEDS: LEVOTHYROXINE 100 MCG TABLET PO (03:28)
[2018-06-26 04:00] VITALS: BP 150/79; PULSE 79; RESP 19; TEMP 36.4; O2SAT 97
[2018-06-26 05:44] LABS: Blood Urea Nitrogen 6 mg/dL (7-17); Calcium 9.6 mg/dL (8.4-10.2); Carbon Dioxide 31 mmol/L (22-32); Chloride 101 mmol/L (98-107); Estimated Glomerular Filt Rate > 60.0 mL/min (>60); Glucose 84 mg/dL (80-110); HEMOLYSIS < 15 (0-50); Magnesium 1.9 mg/dL (1.6-2.3); Sodium 139 mmol/L (137-145)
[2018-06-26 09:00] VITALS: BP 123/71; PULSE 86; RESP 16; TEMP 36.4; O2SAT 95
[2018-06-26] MEDS: ENOXAPARIN 40 MG/0.4 ML SYRINGE SUBCUT (09:03)
[2018-06-26] MEDS: GABAPENTIN 100 MG CAPSULE 200 MG PO ×2 (09:04→13:17)
[2018-06-26] MEDS: DULOXETINE 30 MG CAPSULE PO (09:04)
[2018-06-26] MEDS: AMANTADINE 100 MG CAPSULE PO (09:04)
[2018-06-26] MEDS: FIDAXOMICIN 200 MG TABLET PO (09:05)
[2018-06-26] MEDS: CARBIDOPA LEVODOPA 1 EACH PO ×2 (09:05→13:17)
--- NOTE | 2018-06-26 10:14 | CM.DPC ---
Addendum entered by ZULEYMA Quach 06/26/18 14:11: ADD: Per MD, pt is medically stable for d/c home today with HH. Patient preference is [facility] for discharge. SW called [facility] and made new referral and SW requested [facility] Kyra fax new referral along with completed F2F and MD orders for pt d/c home later today. Plan: Patient to d/c home via spouse POV around 1600 with [facility] to follow. ZULEYMA Quach Original Note: DCP HH Planning SW met bedside with pt and explained role and discussed d/c recommendation of home with HH and pt states she is agreeable and glad to have progressed enough to d/c home likely today. Pt denies any hx of HH and SW provided her with the HH Choice List and pt unsure of her HH preference and would like to talk to her when he arrives bedside to confirm if any HH preference. F2F is completed and signed by MD. Plan: SW to follow after pt's spouse arrives to determine HH preference and to fax new referral towards plan of pt d/c home with spouse and HH when medically stable, possibly today. ZULEYMA Quach
--- NOTE | 2018-06-26 10:52 | PT.IPTN ---
Current Diagnoses Enterocolitis due to Clostridium difficile, recurrent (06/22/18) Other bacterial infections of unspecified site (06/22/18) Dehydration (06/22/18) Hypokalemia (06/22/18) Parkinson's disease (06/22/18) Physical Therapy Treatment Note M2 PT-IP Current Condition Start: 06/23/18 10:07 Freq: NEEDED Status: Active Protocol: Document 06/23/18 11:05 DLM (Rec: 06/23/18 12:24 DLM [id number]) Physical Therapy Current Condition Current Condition Evaluation Date 06/23/18 Treatment Diagnosis weakness Onset Date 06/22/18 Precautions Other Precautions C-diff M3 PT-IP Subjective Start: 06/23/18 10:07 Freq: NEEDED Status: Active Protocol: Document 06/26/18 10:11 MAYLIN (Rec: 06/26/18 10:52 MAYLIN [id number]) Subjective Physical Therapy Visit Type Type Treatment Note Visit Start Time 10:11 Visit Stop Time 10:42 Total Visit Minutes 31 Notes Pt in chair. States she has been there for a long time and is feeling dizzy. M4 PT-IP Mobility and Gait Start: 06/23/18 10:07 Freq: NEEDED Status: Active Protocol: Document 06/26/18 10:11 MAYLIN (Rec: 06/26/18 10:52 MAYLNI [id number]) PT-Bed Mobility Assessment Sit to Supine Sit to Supine Independent Scooting Scooting to Edge of Bed Independent Scooting Up and Down in Bed Independent PT-Transfer Assessment Sit to and From Stand Sit to and from Stand Standby Assistance Use of Upper Extremities Equipment Transfer Assistive Device Gait Belt 4 Wheeled Walker Orthotic/Prosthetic Devices or Brace: No Transfers Transfer Destination Bed Chair Wheelchair Transfer Technique Stand Step Pivot Transfer Ability Level of Assist Standby Assistance Use of Upper Extremities Comments Mobility Comments Pt with dizziness in chair. Remained in chair for seated exercises upon finishing, dizziness had passed. Gait Assessment Gait Gait Assistance Required: Standby Assistance Distance (Feet) 200 Able to Maintain Weight Bearing Status Yes During Gait Assistive Devices Assistive Device Gait Belt 4 Wheeled Walker Gait Deviations General Gait Pattern Antalgic Flexed Trunk Factors Limiting Gait Function Factors Limiting Gait Function Decreased Activity Tolerance Decreased Strength Pain Comments Gait Comments Improved with steadiness and increased pace. No cues needed for WC management. One standing rest break for 3 min d/t dizziness. SBA for gait training. Stair Climbing Assessment Evaluation Level of Assist On Stairs Standby Assistance Devices Stair Climbing Assistive Devices None Technique/Endurance Stair Climbing Direction Ascend and Descend Stair Climbing Technique Step to Step Number of Steps Climbed 3 Query Text: Stair Climbing Set # Repetitions (reps) 2 Comments Stair Climbing Comments Pt safe and steady on stairs. M5 PT-IP Objective Assessments Start: 06/23/18 10:07 Freq: NEEDED Status: Active Protocol: Document 06/23/18 11:05 DLM (Rec: 06/23/18 12:24 DLM [id number]) Orientation Orientation/Cognition Level of Alertness Alert Orientation Name Age Birthday Month Date Year Day of Week Place Situation Language Function Ability No Deficits Noted Safety Awareness Understands Safety Issues Memory Description No Deficits Noted Gross Range of Motion Upper Extremity ROM Assessment Within Functional Limits Lower Extremity ROM Assessment Within Functional Limits Strength Upper Extremity Strength Assessment Within Functional Limits Lower Extremity Strength Assessment Left Impaired Hip hip flexion 4/5 with pain Knee ext 4/5 with pain, flexion 4+/ 5 Ankle DF 5/5 Coordination Assessment Gross Coordination Gross Coordination Impaired Assessment Coordination Comments mild tremors Sensation Assessment Sensation Gross Sensation Right UE Impaired Left UE Impaired Right LE Impaired Left LE Impaired Light Touch Impaired Sensation Description Numbness Pain Comments Sensation Comments hx neuropathy in hands and feet that is managed with medications per pt Muscle Tone Muscle Tone WNL Yes M6 PT-IP Treatment Start: 06/23/18 10:07 Freq: NEEDED Status: Active Protocol: Document 06/26/18 10:11 MAYLIN (Rec: 06/26/18 10:52 MAYLIN [id number]) Physical Therapy Treatment Exercises Exercises Gluteal Sets Quad Sets Straight Leg Raises Seated Knee Flexion/Extension Other Treatments Other Treatment Performed seated hip AB/AD x10 M7 PT-IP Assessment and Plan Start: 06/23/18 10:07 Freq: NEEDED Status: Active Protocol: Document 06/26/18 10:11 MAYLIN (Rec: 06/26/18 10:52 MAYLIN [id number]) PT Summary Assessment and Plan Potential Rehabilitation Potential Good Status of Condition at Evaluation Evolving Summary Assessment Summary Pt experienced slight dizziness upon standing but it passed quickly. Ambulated in hallway with 1 standing rest break for a total of ~200' . Stair training x 2 with SBA and use of handrails. Pt safe on stairs and increased endurance and steadiness during ambulation. Safe for d/ c home with assistance and HH Goals Bed Mobility Goal Independent Gait Goal Independent Four Wheel Walker Gait Distance 150 feet Days to Meet Goals 3 Frequency of Treatment Frequency Of Treatment Once a Day Treatment Plan Physical Therapy Treatment Plan Bed Mobility Training Therapeutic Exercise Discharge Planning Recommendations To Nursing Amount of Assist Needed Standby Assistance Discharge Recommendations PT Discharge Recommendations Home with Assistance
--- NOTE | 2018-06-26 12:33 | PM.DS.1 ---
History of Present Illness Date Patient Seen: 06/26/18 Chief complaint: C-diff Narrative: This is a 72-year-old female patient with a history of Parkinson's, hypothyroidism, vertigo presents to the ER today with complaints syncopal episodes low blood pressure dizziness. The patient had a previous episode C difficile colitis after exposure to multiple antibiotics that began with total knee surgery in December followed by another surgery January for infected knee and then on March 31 the patient was started on clindamycin for dental infection by the oral surgeon developing C difficile the next day. This is treated with Flagyl and oral vancomycin for 2 weeks. She has had recurrent symptoms with watery mucoid stools and loss of appetite and 2 syncopal episodes in the last 2 days. Patient describes being dizzy and lightheaded upon standing. She describes having abdominal pain that is dull at times sharp but others and rates his worst than menstrual cramps. The patient initially treated in walk-in clinic with 2 L of lactated Ringer's. She received another L of fluid in the emergency room. The patient disorder reports progressive weakness to the extent that over the last 3 weeks she has not been able to participate with physical therapy for her knee rehabilitation. The patient does state that she can walk around the house or walk for approximately 10 minutes without having to rest. She reports no ongoing complaints of fevers or chills, headaches or visual changes. She has a nasal congestion or sore throat. She reports no chest pain but does have dyspnea on exertion without cough. The patient does have continuing left knee pain with a well-healed surgical scar without evidence of infection or inflammation. In the ER the patient has a normal white count at 8.6 with increased neutrophils is negative for flu and chemistries and renal function are within normal range. Discharge Providers Date of admission: 06/22/18 21:23 Discharge Date: 06/26/18 Primary care physician: Daly Sears MD Consults: 06/23/18 00:08 Consult to Dietitian, Adult Routine Comment: Reason For Exam: C-Diff infection 06/23/18 00:09 Consult to Discharge Planning Routine Comment: 06/23/18 06:58 Consult to Physical Therapy Evaluate & Treat Comment: parkinsons, s/p left TKA Physician Instructions: Evaluate and Treat Discharge provider: Lois Flood MD Summary Discharge Diagnosis: 1. Recurrent C difficile colitis, fulminant, present on admission 2. Acute dehydration present on admission now resolved 3. Parkinson's syndrome, chronic 4. Hypothyroidism, chronic 5. Knee pain, chronic 6. Obesity Hospital Course: The patient is a 72-year-old female who was admitted to the hospital for acute dehydration and recurrent C difficile colitis. Patient had been treated as an outpatient initially with metronidazole and subsequently oral vancomycin. Despite that she developed recurrent diarrhea with multiple stools per day. Patient became dehydrated despite trying oral hydration. If she presented dizzy. Upon admission to the hospital the patient initially was treated with oral vancomycin. She was switched to the Fidaxomycin with improvement in the number of BMs per day. The patient today had to small formed stools. She does report feeling somewhat dizzy. She reports she has dizziness associated with her Parkinson's. Her appetite is good. She has had no fever. Her diarrhea has essentially resolved. The patient will be returning home. Her is at home and will be caring for her there. She will follow up with her physicians on the [facility] for follow-up appointment once she completes her current treatment. Status at Discharge Cognitive/behavioral status at discharge: oriented Functional status at discharge: uses cane/walker Overall status at discharge: patient is back to baseline Time Spent with Patient Less than 30 minutes Exam Vital Signs (past 8 hours): - 06/26/18 09:00 Temperature 97.6 F Pulse Rate 86 Respiratory Rate 16 Blood Pressure 123/71 Pulse Oximetry 95 Oxygen Delivery Method Room Air Oxygen Flow Rate 0 Narrative Exam Narrative: Pleasant female resting comfortably Lungs: Clear to auscultation Cardiac exam: Regular rate and rhythm normal S1-S2, with a 2/6 systolic ejection murmur Abdomen: Soft nontender nondistended no appreciable hepatosplenomegaly no palpable mass Extremities: No edema Objective Labs Result Diagrams: 06/25/18 05:28 06/26/18 05:08 Labs: Laboratory Results - last 24 hr ably 06/26/18 05:08 Sodium 139 Potassium 4.0 Chloride 101 Carbon Dioxide 31 BUN 6 L Creatinine 0.60 Estimated GFR > 60.0 BUN/Creatinine Ratio 10.0 Glucose 84 Calcium 9.6 Magnesium 1.9 Discharge Plan Discharge Plan Discharge Problem: Clostridium difficile infection, Dehydration Patient Disposition: Home Discharge comment: follow up with PCP after completion of antibiotics Discharge Med Rec/Prescriptions Prescriptions: New fidaxomicin [Dificid] 200 mg Tablet 200 mg PO BID 7 Days Qty: 14 RF: 0 Continued docusate calcium [Stool Softener] 240 mg capsule 240 mg PO BID RF: 0 carbidopa-levodopa 50-200 mg tablet extended release 1 tab PO 0000 RF: 0 amantadine HCl 100 mg capsule 100 mg PO BID RF: 0 levothyroxine [Synthroid] 100 mcg tablet 100 mcg PO DAILY RF: 0 carbidopa-levodopa 25-100 mg tablet extended release 1 tab PO QID RF: 0 alprazolam [Xanax] 1 mg Tablet 1 mg PO BEDTIME RF: 0 gabapentin 100 mg capsule 200 mg PO Q4H RF: 0 duloxetine 30 mg capsule,delayed release(DR/EC) 30 mg PO QAM RF: 0 clonazepam 1 mg Tablet 1 mg PO BEDTIME RF: 0 Follow up/Referrals: Daly Sears MD [Primary Care Provider] - Provider Discharge Instructions Diet: Diet as Tolerated Activity: as tolerated Visit Report/Discharge Packet Instructions: Antibiotic-associated Colitis -- C difficile, DI for Antibiotic -- associated Colitis -- C difficile, Clostridium difficile Infection, DI for Clostridium difficile Infection Discharge Data Primary Care Provider: Daly Sears Attending Provider: Carlos Sinha Admit Date/Time: 06/22/18 21:23
[2018-06-26 13:00] VITALS: BP 137/77; PULSE 89; RESP 16; TEMP 36.6; O2SAT 93
--- NOTE | 2018-06-26 14:59 | CM.DPC ---
DCP Cont: Faxed referral to [facility] at fax # [phone]. Fax confirmation scanned in. Kyra Warner, Care Director [employer]
== END 2018-06-26 14:25 | disposition home or self-care (01) | DRG 373 ==
LOC: ED 20:20 → AC 06-23 07:03
PROVIDERS: Internal Medicine; Admitting Provider Nurse Practitioner Adult Health; Emergency Provider Emergency Medicine; Family Provider Internal Medicine; PCP Internal Medicine; Visit Provider Nurse Practitioner Adult Health
DX: A04.71 Enterocolitis due to Clostridium difficile, recurrent (principal); E86.0 Dehydration; G20 Parkinson's disease; E03.9 Hypothyroidism, unspecified; E87.6 Hypokalemia; E66.9 Obesity, unspecified; Z68.37 Body mass index [BMI] 37.0-37.9, adult; R55 Syncope and collapse
CPT/HCPCS: 36415; 36573; 36592; 74019; 80048; 80053; 81003; 83735; 84145; 84443; 85025; 87040; 87400; 87507; 96360; 97116; 97162; 97530; 99284; J1650; J2405; J3480